=== PATIENT | male | born 1940 | race Caucasian/White ===

== ENCOUNTER → 2016-05-18 | Outpatient (CLI) | payer OTHER ==
--- NOTE | 2016-05-18 17:18 | DX ---
Lumbar Spine, 4 views History: Pain Comparison: July 12, 2013 Findings: Lumbar alignment is anatomic, with a mild retrolisthesis present at L3-L4 . 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 There are 5 lumbarized vertebral bodies. There is moderate degene rative disk base narrowing between L1 and L5 with severe disk space narrowing at L5-S1. There is a va cuum phenomenon present at L4-L5. There is degenerative facet disease on the right between L4 and S1 and on the left at L5-S1.. There are anterior and posterior osteophytes present between L1 and L5. Th ere are no compression abnormalities. There is stable dense atherosclerotic calcification of the abdo christine aorta. Impression: 1. Chronic multilevel degenerative change superimposed on a congenitally small lumbar agustin ral canal . 2. Atherosclerosis.
== END ==
LOC: GIMAGING 15:57
PROVIDERS: ATTEND Family Medicine
DX: M51.36 Other intervertebral disc degeneration, lumbar region (principal); Q07.8 Other specified congenital malformations of nervous system; I25.10 Atherosclerotic heart disease of native coronary artery without angina pectoris
CPT/HCPCS: 72100-PO

== ENCOUNTER 2016-06-06 16:37 | Inpatient (IN) | payer OTHER ==
[2016-06-06] MEDS ORDERED: ACETAMINOPHEN 325 MG TAB PO PRN (17:09)
[2016-06-06] MEDS ORDERED: PROMETHAZINE HCL 25 MG/ML INJ IVP PRN (17:09)
[2016-06-06] MEDS ORDERED: NALOXONE HCL 0.4 MG/ML INJ IVP PRN (17:09)
[2016-06-06] MEDS ORDERED: ONDANSETRON DISINTEGRATING 4 MG TAB PO PRN (17:09)
[2016-06-06] MEDS ORDERED: ONDANSETRON 4 MG/2 ML VIAL IVP PRN (17:09)
[2016-06-06] MEDS: HYDROmorphONE/DILAUDID 6 MG/30 ML PCA IV PRN (18:10)
[2016-06-06] MEDS: NS 1,000 ML IV SCH (18:11)
--- NOTE | 2016-06-06 18:20 | CPEKG ---
Heart Rate: 89 RR Interval: 674 P-R Interval: 132 QRSD Interval: 78 QT Interval: 416 QTC Interval: 507 P [place]: 69 QRS [place]: 18 T Wave [place]: 101 EKG Severity - ABNORMAL ECG - EKG Impression: SINUS RHYTHM EKG Impression: ABNORMAL T, CONSIDER ISCHEMIA, ANT-LAT LEADS EKG Impression: PROLONGED QT INTERVAL EKG Impression: PROBABLE ANTERIOR ISCHEMIA PATTERN, CONSIDER LAD OBSTRUCTION Electronically Signed By: Jeronimo Rockwell 06-Jun-2016 19:54:06
--- NOTE | 2016-06-06 18:56 | WOCRNPDOC ---
WOCRN Advanced Assessment Note - Skin Integrity Problem, Advanced Assess Coccyx Pressure Injury Dressing Type: AllevHemp [employer] Life Integumentary Issue Intervention: Visualized Under Dressing Site Measurement - Head-to-Toe Length X Width X Depth (cm): 3x3x0 Pressure Injury Stage: Stage 1 Skin Integrity Problem Comment: Education with patient about pressure injury prevention, treatment and care. Patient verbalized understanding. Pillows placed to offload to the left and pillow under legs to offload heels.
[2016-06-06 19:11] LABS: % IMMATURE GRANULYOCYTES 0.9 % (0.0-1.1); ABSOLUTE IMMATURE GRANULOCYTES 0.11 10^3/uL (0.00-0.10); ADD DIFF? NO; ADD MORPH? NO; ADD SCAN? NO; ATYPICAL LYMPHOCYTE FLAG 0 (0-99); FRAGMENT RBC FLAG 0 (0-99); HEMATOCRIT 43.7 % (40.0-51.0); HEMOGLOBIN 14.8 g/dL (13.7-17.5); LEFT SHIFT FLG 10 (0-99); LIPEMIA HEMOLYSIS FLAG 90 (0-99); MEAN CELL HEMOGLOBIN 29.4 pg (27.9-34.1); MEAN CELL HEMOGLOBIN CONCENTR. 33.9 g/dL (32.4-36.7); MEAN CELL VOLUME 86.7 fL (81.5-99.8); MEAN PLATELET VOLUME 9.9 fL (8.7-11.7); PLATELET CLUMPS FLAG 0 (0-99); PLATELET COUNT 306 10^3/uL (150-400); RED BLOOD CELL COUNT 5.04 10^6/uL (4.40-6.38); RED CELL DISTRIBUTION WIDTH 13.3 % (11.5-15.2)
[2016-06-06 19:30] LABS: APTT 25.5 SEC (23.0-38.0); INR 1.14 (0.83-1.16); PROTIME(PATIENT) 14.5 SEC (12.0-15.0)
[2016-06-06 20:06] LABS: ALANINE AMINOTRANSFERASE 37 IU/L (21-72); ALBUMIN 3.1 g/dL (3.5-5.0); ALKALINE PHOSPHATASE 138 IU/L (38-126); ANION GAP 10 mEq/L (8-16); ASPARTATE AMINOTRANSFERASE 18 IU/L (17-59); BILIRUBIN,TOTAL 0.8 mg/dL (0.1-1.4); CALCIUM 8.8 mg/dL (8.5-10.4); CARBON DIOXIDE 25 mEq/l (22-31); CHLORIDE 102 mEq/L (97-110); CREATININE 0.6 mg/dL (0.7-1.3); GLOMERULAR FILTRATION RATE > 60; GLUCOSE 139 mg/dL (70-100); POTASSIUM 4.2 mEq/L (3.5-5.2); SODIUM 137 mEq/L (134-144); TOTAL PROTEIN 6.1 g/dL (6.3-8.2)
--- NOTE | 2016-06-06 20:40 | GCON ---
[f rep st] CONSULTATION HEMATOLOGY/ONCOLOGY CONSULTATION NOTE REASON FOR CONSULTATION: Metastatic malignancy with extensive bone metastases. HISTORY OF PRESENT ILLNESS: The patient is a very pleasant 76-year-old male who was recently seen by Dr. Garcia in consultation and is being admitted for further evaluation regarding a newly diagnosed metastatic malignancy. The patient has a history of prostate cancer diagnosed about nine years ago, treated with radioactive seeds. He is not known to have any recurrence of that. He states that around he leaned over and developed some back pain which has been very persistent. It has made walking and standing difficult. It is worse when he lies down at night. The pain is in the low back and down the left leg. He is taking Vicodin about four times a day. He has lost about 30 pounds in the last three to four months. He also has severe right neck pain and has had some paresthesias in his fingertips. He recently had an MRI at [facility] after being seen at [facility]. The cervical study showed a 2.3 cm diameter metastasis on the right side of C7-T1 facet extending into the right T1 pedicle. There was partial visualization of a large , at least 2.7 cm, mass centered in the left T2 to T3 facet. There were in addition severe degenerative changes at multiple levels. MRI of his lumbar spine showed partial visualization of a large met throughout the T11 vertebral body abutting the ventral aspect of the spinal cord. There was a 1.7 cm met in the anterior inferior right T12 and then a slightly smaller metastasis noted at L1 and L5. There were no obvious fractures. The patient saw Dr. Garcia in consultation on June 03. The CT scans were ordered and done this morning at [facility]. The reports are currently not available, however, Dr. Couch relayed to Dr. Garcia that the patient had a large left upper lobe lung mass as well as possibility of intracardiac metastases. Dr. Couch felt that biopsy of the T11 lesion was probably the most direct path toward diagnostic biopsy. The patient was started on Decadron on Monday which has helped his pain somewhat. He is not interested in aggressive treatment if it is not considered curative, but is interested in pursuing a diagnosis and doing what can be done to relieve pain. PAST MEDICAL HISTORY: Prostate cancer as above. SOCIAL HISTORY: The patient does not have a smoking history. He smoked briefly when he was 20 years old, but nothing regular. He is not and does not have children. He is accompanied today by his friend, and he has several very good friends. REVIEW OF SYSTEMS: A 10-point review of systems are negative other than noted in HPI. FAMILY HISTORY: Negative. PHYSICAL EXAMINATION: GENERAL: He is fatigued appearing and somewhat uncomfortable sitting in a wheelchair. VITAL SIGNS: Blood pressure 126/86, pulse 84, respirations 16, he is afebrile. Weight 143 pounds. HEENT: Pupils are equal. Sclerae anicteric. Oropharynx clear. LUNGS: Clear with some scattered crackles in the apex. HEART: Regular rate. ABDOMEN: Soft. EXTREMITIES: No edema. NEURO: He has brisk reflexes in both upper extremities and minimal reflexes at both knees. He states he is able to walk, but has difficulty due to pain in the left leg, but denies actual weakness. LABORATORY DATA: Labs from today pending. However, labs from Monday showed an SPEP with a small abnormality in the gamma fraction, but no monoclonal protein was able to be detected by immunophenotyping. Wortham light-chain was slightly elevated at 2.5 with a slightly increased ratio of 1.8. Quantitative immune globulins unremarkable. PSA of 0.25. CEA of 0.6. LDH of 759. Alk phos 145. Calcium 9.2. Albumin 3.0. Sodium 140, creatinine 0.6. White blood cell count 11.6, hematocrit 44.3 and platelets 265. IMPRESSION: This is a 76-year-old male with newly diagnosed left upper lobe lung mass and extensive vertebral metastasis. There is no evidence of pathologic fracture on the recent cervical and lumbar MRI. The MRI's are outside films and are currently not available. Imaging is most suggestive of this being a lung cancer primary. While the patient has a remote history of prostate cancer, this seems less likely especially in the setting of a low PSA. Lymphoma would be another consideration , but again unlikely. While patient has a slightly altered Wortham lambda ratio, I think multiple myeloma would also be unlikely. At this point, the patient needs pain control. We discussed a trial of Dilaudid SENIOR DIRECTOR which he is open to. He is receiving some pain relief from the steroids which we can continue. I would recommend checking a thoracic MRI and probably cervical MRI as well, so those films can be readily available for review. He should also have a brain MRI. Dr. Couch felt that T11 lesion was most amenable to biopsy or possibly the sacral lesion. Will order a CT-guided bone biopsy for the morning as well as an echocardiogram to evaluate for the possibility of intracardiac metastases. The patient is primarily interested in pain control and may decide not to undergo any treatment, but more specific conversations will be had in the future once a definitive diagnosis is made. Will continue to follow along with you. /[id number]/MODL MTDD
[2016-06-06] MEDS ORDERED: DEXAMETHASONE 4 MG TAB PO SCH (21:00)
--- NOTE | 2016-06-06 22:17 | DX ---
Chest, PA and Lateral June 06, 2016 HISTORY: Cough and shortness of breath. History of lung CA. Comparisons: None. FINDINGS: The heart size is within normal limits. Opacification is seen superiorly in the left lung , which could be a mass and/or pneumonia. The right lung is clear. Emphysematous configuration to t he chest. Degenerative change is seen in the thoracic spine. IMPRESSION: Focal opacification in the left upper lobe in a suprahilar location, which could be a co mbination of a mass and/or pneumonia. Comparison to old films would be helpful.
--- NOTE | 2016-06-06 22:26 | GHP ---
[f rep st] HISTORY AND PHYSICAL DATE OF ADMISSION: 06/06/2016 CHIEF COMPLAINT: Difficulty walking and pain. HISTORY: A 76-year-old man who has a past medical history of prostate cancer treated with radioactiv e beads many years ago, who presents from the [facility] with concerns for a new di agnosis of metastatic disease to the spine. The patient notes that over the last several months he h as had difficulties with worsening abdominal and back pain that also affects his legs. He has progre ssive weakness involving his lower extremities, left greater than right, to the point where he is hav ing difficulty walking. He has also had unintentional 30-pound weight loss. He has been started on oral opiates, though this has not been able to control his pain. He recently underwent imaging at an outside imaging center, and these results were notable for a number of vertebral mets with possible spinal cord impingement, and a concern for a possible pulmonary mass as well. Given need for emergen t workup of these lesions, he is being brought in for expedited inpatient workup. PAST MEDICAL HISTORY: Prostate cancer. PAST SURGICAL HISTORY: Radioactive beads to the prostate. FAMILY HISTORY: Both parents are . His father of bone marrow cancer. He states that m any other family members have of complications of alcoholism. SOCIAL HISTORY: The patient has a very brief and remote smoking history. He is has never been marri ed. Has no children. He used to drink, but quit many years ago. REVIEW OF SYSTEMS: 10-point review of systems obtained and negative, except as per HPI. MEDICATIONS: 1. [place]. 2. Voltaren. 3. Dexamethasone. ALLERGIES: No known drug allergies. PHYSICAL EXAM: VITAL SIGNS: Reviewed and are within normal limits. GENERAL APPEARANCE: The patien t is well appearing, he appears well nourished. EYES: Anicteric. HENT: Oropharynx clear. CARDIOV ASCULAR: RRR, no MRG. PULMONARY: Occasional rales, but otherwise clear to auscultation. Normal wo rk of breathing. ABDOMEN: Soft, nontender, nondistended. EXTREMITIES: No clubbing, cyanosis, or e john. NEURO/PSYCH: Oriented and appropriate. He has weakness in the bilateral lower extremities. L eft greater than right. Sensation is intact. CLINICAL DATA: PSA noted to be 0.25. CEA of 0.6. EKG, reviewed and interpreted independently by my self, showing sinus rhythm. There is a bit of unstable baseline; however, T-wave abnormalities, ante rior lateral leads, concerning for ischemia. Chest x-ray, reviewed and interpreted independently by myself. Radiology read is currently pending. There is a dense left upper lobe lesion consistent with a pulmonary lesion noted on CT scan. Labs notable for white blood cell count of 12.5, hematocrit of 43.7, platelets of 306. Coags are with in normal limits. Chemistry is remarkable for glucose of 139. LFTs are remarkable only for a total o f protein 6.1 and albumin 3.1. ASSESSMENT AND PLAN: 76-year-old man with a new diagnosis of presumed metastatic cancer with unknown primary, likely pulmonary, presenting with gait instability and diffuse pain. 1. Metastatic vertebral cancer. Patient with multiple lesions noted on outside imaging, with possib le cord involvement. Followup MRI ordered to further evaluate cervical and thoracic spine, as well a s the brain. Oncology is involved. The patient will undergo biopsy likely of thoracic lesion noted on outside imaging, but again followup imaging ordered for tonight. Again, with large lung lesion th e underlying possible source especially given a normal PSA. 2. Chronic pain. The patient's pain is not controlled currently. He will be started on a Dilaudid PIT STEWARD to get a sense of what his 24-hour opiate requirement is to have pain control. 3. EKG abnormalities. Patient does describe some chest discomfort. BNP was obtained at 592. Will trend troponins overnight. We will obtain an echocardiogram as well in the morning. 4. Disposition, inpatient status. Patient will need greater than 48-hour stay for evaluation and ma nagement of above. 5. Patient is new to my care. Old records reviewed. Summary is as per HPI and past medical history . Care plan reviewed with Oncology and ER physician, including plans for likely biopsy in the ban gayle /[id number]/MODL
[2016-06-06] MEDS: DICLOFENAC SODIUM 75 MG TAB PO SCH (22:44)
[2016-06-06 23:43] LABS: COLOR YELLOW; LEUKOCYTE ESTERASE,URINE NEGATIVE (NEGATIVE); NITRITE,URINE NEGATIVE (NEGATIVE)
[2016-06-07 04:44] LABS: % IMMATURE GRANULYOCYTES 0.7 % (0.0-1.1); ABSOLUTE IMMATURE GRANULOCYTES 0.09 10^3/uL (0.00-0.10); ADD DIFF? NO; ADD MORPH? NO; ADD SCAN? NO; ATYPICAL LYMPHOCYTE FLAG 10 (0-99); FRAGMENT RBC FLAG 0 (0-99); HEMATOCRIT 40.7 % (40.0-51.0); HEMOGLOBIN 13.6 g/dL (13.7-17.5); LEFT SHIFT FLG 10 (0-99); LIPEMIA HEMOLYSIS FLAG 80 (0-99); MEAN CELL HEMOGLOBIN 30.2 pg (27.9-34.1); MEAN CELL HEMOGLOBIN CONCENTR. 33.4 g/dL (32.4-36.7); MEAN CELL VOLUME 90.4 fL (81.5-99.8); MEAN PLATELET VOLUME 10.2 fL (8.7-11.7); PLATELET CLUMPS FLAG 0 (0-99); PLATELET COUNT 275 10^3/uL (150-400); RED CELL DISTRIBUTION WIDTH 13.4 % (11.5-15.2)
[2016-06-07 04:48] LABS: ANION GAP 7 mEq/L (8-16); CALCIUM 8.5 mg/dL (8.5-10.4); CARBON DIOXIDE 27 mEq/l (22-31); CHLORIDE 105 mEq/L (97-110); CREATININE 0.6 mg/dL (0.7-1.3); GLOMERULAR FILTRATION RATE > 60; GLUCOSE 139 mg/dL (70-100); POTASSIUM 4.6 mEq/L (3.5-5.2); SODIUM 139 mEq/L (134-144)
[2016-06-07] MEDS: DEXAMETHASONE 4 MG TAB PO SCH ×2 (08:57→20:44)
[2016-06-07] MEDS: DICLOFENAC SODIUM 75 MG TAB PO SCH ×2 (08:57→20:45)
[2016-06-07] MEDS ORDERED: GADOBUTROL 10 ML VIAL IVP ONE (09:33)
[2016-06-07] MEDS ORDERED: HYDROmorphONE/DILAUDID 1 MG/ML SYR IVP PRN (10:03)
--- NOTE | 2016-06-07 12:02 | MR ---
MRI of the Cervical Spine (Without and With Contrast), 10:26 Contrast: 6 mL Gadavist gadolinium contrast, without complication. History: Lumbar spinal metastases identified on outside lumbar MRI, patient cannot walk, evaluate for cervical metastatic disease COMPARISON: None Technique: Precontrast: sagittal TI, FSE T2 and STIR images. Axial T1 and FSE T2 images. Post Contras t: T1 sagittal and axial images. Findings: Identified is a lower portion of the study is right sided posterior T1 vertebral body metas tatic disease extending through the right pedicle into the superior and inferior articulating facets. This is associated with an enhancing soft tissue mass posterior to the articular process of C7 and t he C6-C7 facet joint. This mass circumferentially encases the right lateral posterior elements. This soft tissue mass causes a right lateral 6mm extradural mass, that mildly impinges on the thecal sac a nd encroaches on the right T1-T2 and C7-T1 neural foramina. The cord is not obviously displaced or fl attened. Also present on the lower portion of the study is a large metastasis involving the left side of the T 3 vertebral body that expands and destroys the left posterior elements and significantly encroaches o n the left T3-T4 and 12 lesser extent T2-T3 foramen. This level is not included on axial imaging. On sagittal postcontrast images the left lateral epidural mass appears to at least touch the cord at thi s level. The craniocervical junction and cervical alignment are anatomic. There is scattered degenera tive disk disease between C3 and C7, none of which causes severe central neural canal stenosis or sig nificant cervical cord impingement. The visualized posterior fossa does not show evidence for metasta tic disease. There is midline cerebellar atrophy. The cervical cord is normal in size and signal inte nsity. There is no evidence for a cord metastasis, cord atrophy, syrinx formation or extrinsic cord c ompression. There is no evidence for cervical vertebral or epidural metastatic disease. There is no pathologic cervical adenopathy identified. Impression: 1. Metastatic disease in the upper thoracic spine described above, is associated with epi dural mass. 2. No cervical spinal or cord metastasis identified. 3. Moderate cervical spondylosis without evidence for significant cord impingement. Results called to Rhona, the patient's 1N nurse at noon.
--- NOTE | 2016-06-07 12:32 | MR ---
MRI of the Brain(Without and With Contrast) Contrast: 6 mL intravenous Gadavist without complication. History: Metastatic disease from unknown primary in thoracic and lumbar region. Remote history of pr ostate cancer. Technique: Sagittal and axial T1-weighted images. Axial fast T2 2nd echo, GRE, diffusion and FLAIR im ages. Postgadolinium axial and coronal images. Findings: There is no enhancing parenchymal, calvarial or extra-axial (meningeal) metastatic disease. There is moderate age-appropriate cerebral atrophy. There are bilateral isovolumic supratentorial T2 -weighted foci of hyperintensity, none of which enhance or are associated with hemorrhage or reduced effusion, consistent with typical microvascular ischemic change of in nature often seen in elderly pa tients. On diffusion imaging however, there is a single right mid parietal, curvilinear diffusion res triction within the cortex and adjacent white matter of a single gyrus (axial image 23, series 4). T here are also 2 small cortical foci of restricted diffusion in the left parietal lobe on images 21 an d 23. None of these are associated with gadolinium enhancement. There is no midline shift or hydrocephalus. There is no intracranial hemorrhage. There are scattered bilateral Impression: 1. No definitive evidence for intracranial metastatic disease. 2. Small areas of biparietal cortical diffusion restriction, possibly representing tiny acute infarct s (related to emboli or vasculitis) or less likely, potential evidence of minimal metastasis, not yet associated with blood brain barrier leakage. This can be followed on subsequent MRI, as clinically directed.
[2016-06-07] MEDS ORDERED: NA BICARBONATE 50 MEQ/50 ML VIAL ONE ×2 (13:42→15:16)
[2016-06-07] MEDS ORDERED: LIDOCAINE 1% 30 ML SDV ONE ×2 (13:42→15:16)
--- NOTE | 2016-06-07 14:38 | US ---
Limited ultrasound Spinal canal lower thoracic spine 0903 hours. HISTORY: Right posterior paraspinal mass on prior CT imaging. FINDINGS: Ultrasound right lower thoracic spine in the T11 level confirms hypoechoic solid mass with internal color flow enhancement that measures 5.6 x 2.2 x 3.7 cm. The patient was originally schedule d for ultrasound-guided needle core biopsy, however, this was canceled. IMPRESSION: 1. Right posterior paraspinal mass confirmed at around the T11 level. If indicated, this can be biops ied with ultrasound guidance at a later date.
--- NOTE | 2016-06-07 15:03 | ECHO ---
[id number] + + [address] : : [place] [address] : : [phone] + + Adult Echocardiographic Report + -----+ :Name: CAMILO SPAIN SStudy Date: 06/07/2016 12:20 PM : : Hospital Admission Number: [id number] Location : 156: :: 1940 Gender: Male Height: 70 in : :Age: 76 yrs Race: WH Weight: 146 lb : :Reason For Study: CT scan shows LG lung mass w/ possible : :intracardiac involvement BSA: 1.8 meters2 : :History: new diagnosis of metastic malignancy : + -----+ MMode/2D Measurements & Calculations IVSd: 1.0 cm RVDd: 2.3 cm FS: 36.0 % LVPWd: 0.80 cm LVIDd: 4.2 cm EDV(Teich): 79.5 ml LVIDs: 2.7 cm ESV(Teich): 27.0 ml EF(Teich): 66.0 % Normal Measurement Values: + + :LVIDd (3.5-5.7cm) IVSd (0.6-1.1cm) LVPWd (0.6-1.1cm) Aortic Root (2.0-3.7cm)Left Atrium (1.5-4.0cm): :LV Vol(d) (76-115ml) LV Vol(s) (29-48ml) Ejec Fraction (50-65%)PV [place] (0.6- 1.2m/s) TV [place] (0.4-1.0m/s) : :MV E [place] (0.8-1.0m/s)MV A [place] (0.3-1.0m/s)LVOT [place] (0.7-1.2m/s) Asc Ao Gilmar ( 0.9-1.8m/s) : + + Doppler Measurements & Calculations MV E max gilmar: Ao V2 max: LV V1 max: PA V2 max: 69.1 cm/sec 115.0 cm/sec 88.4 cm/sec 72.8 cm/sec MV A max gilmar: Ao max P.3 mmHgLV V1 max PG: PA max P.2 cm/sec 3.1 mmHg 2.1 mmHg MV E/A: 1.1 TR max gilmar: 291.0 cm/sec TR max P.9 mmHg RAP systole: 10.0 mmHg RVSP(TR): 43.9 mmHg Left Ventricle The left ventricle is normal in size and function. Large cardiac mass noted in the apex of the left and probably right ventricule. The mass appears to be most likely a tumor and not a clot. Ejection Fraction = 60%. The left ventricular wall motion is normal. Right Ventricle The right ventricle is normal in size and function. Possible RV apical mass. Atria The left atrial size is normal. Right atrial size is normal. A dilated inferior vena cava suggests increased right atrial pressure. Mitral Valve The mitral valve is normal in structure and function. There is no mitral valve stenosis. There is trace to mild mitral regurgitation. Tricuspid Valve The tricuspid valve is normal in structure and function. There is no tricuspid stenosis. There is moderate tricuspid regurgitation. Right ventricular systolic pressure is 44mmHg. There is Doppler evidence for mild pulmonary hypertension. Aortic Valve The aortic valve is trileaflet. There is mild aortic valve calcification. There is no aortic stenosis. Mild aortic regurgitation. Pulmonic Valve The pulmonic valve is not well visualized. Great Vessels The aortic root is not well visualized. Pericardium/Pleural There is no pericardial effusion. Conclusion A two-dimensional transthoracic echocardiogram with M-mode and Doppler was performed. The left ventricle is normal in size and function. Large cardiac mass noted in the apex of the left and probably right ventricule. The mass appears to be most likely a tumor and not a clot. Ejection Fraction = 60%. There is trace to mild mitral regurgitation. There is moderate tricuspid regurgitation. Right ventricular systolic pressure is 44mmHg. Mild aortic regurgitation. The aortic root is not well visualized. The left ventricular wall motion is normal. There is Doppler evidence for mild pulmonary hypertension. Results discussed with Dr. Warner Final Reading Physician: Dr Aye Thompson electronically signed on 06/07/2016 03:01 PM Ordering Physician: Radha Warner Performed By: Nohemi Ocampo
[2016-06-07] MEDS: LORazepam 0.5 MG TAB PO PRN ×2 (15:34→17:34)
[2016-06-07] MEDS ORDERED: BUPIVACAINE 0.25% 30 ML SDV ONE (15:51)
--- NOTE | 2016-06-07 16:45 | US ---
Ultrasound-guided biopsy right posterior paraspinal T11 mass HISTORY: Soft tissue mass right posterior paraspinal soft tissues. Unknown primary. PQRS Cross-Cutting Measure: Tobacco use: No. Witnessed Consent: Witnessed informed consent was obtained after the risks, benefits, and alternativ es of ultrasound-guided core biopsy right posterior paraspinal mass were explained to the patient and all questions were answered. The mass right posterior paraspinal location was localized at around the T11 level. The skin was prep ped and draped in sterile fashion. Following local anesthesia with 1% lidocaine a 17-gauge coaxial ne edle was advanced with ultrasound guidance to the superficial margin of the mass. 6 core biopsy sampl es were submitted in formalin to pathology. An additional 2 samples were submitted in Brendan's solution as well. No immediate complications were visualized. No bleeding occurred. IMPRESSION: Successful ultrasound-guided 18-gauge needle core biopsy of right posterior paraspinal ma ss at around the T11 level.
--- NOTE | 2016-06-07 18:10 | MR ---
MRI of the Thoracic Spine (Without and with Contrast) 1104 hours Reason for examination: Lumbar metastatic disease and pulmonary mass. Evaluate for thoracic spine met astatic disease. Unable to walk. Technique: Sagittal T1, FSE T2 2nd echo with fat suppression and STIR imaging. Axial T1 and FSE T2 2n d echo imaging with fat suppression. Postcontrast T1 sagittal with fat saturation and axial imaging w as obtained after the administration of 6.0 mL Gadovist IV contrast. Findings: There is abnormal enhancing mass left pedicle and transverse process at T3 that extends int o the left anterior epidural space with displacement of the cervical spinal cord toward the right. Ma ss extends into the left paraspinal soft tissues as well as extension into the left upper lobe mass. There is also diffuse bone marrow replacement and enhancement soft tissues with associated enhancemen t of the T11 vertebral body segment with extension of tumor into the anterior epidural space causing moderate compression upon the spinal sac and moderate spinal stenosis. There is also a soft tissue co mponent extending in the right posterior paravertebral soft tissues. This posterior extension measur es 5.3 x 2.5 x 3 cm in longitudinal, AP, and transverse dimensions. Metastatic deposit is also seen associated with the right anterior aspect of T12 vertebral body. No a dditional osseous metastatic lesions are appreciated involving the thoracic spine. Mild posterior central disk bulge is suspected at T6-T7. No significant degenerative disk disease is appreciated. Impression: 1. Osseous mass involving the left side of T3 vertebral body segment extending into the left pedicle with involvement of the left and anterior epidural space displacing the spinal cord toward the right as well as extension left paraspinal soft tissues and left upper lobe pulmonary mass. 2. Metastatic lesion at the T11 vertebral body segment with extension into the anterior epidural spac e as well as through the right pedicle and transverse process into the right posterior paraspinal sof t tissues. This area was subsequently biopsied with ultrasound guidance. 3. Osseous metastatic lesion right anterior aspect of T12.
--- NOTE | 2016-06-07 18:50 | SOAPPROG ---
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 3)Left thigh pain-impairing ambulation 4) Intracardiac mass at LV/RV apex. Appears intrinsic to the myocardium (not intraventricular), likely represents a metastasis. Plan: continue dex and dilaudid ROUTE SALES SPECIALIST Follow up biopsy results. Will need further eval of left leg. Probably start with xray tomorrow Consider cardiac mri to further characterize cardiac mass. Subjective: much more comfortable today. Objective: Vital Signs Temp Pulse Resp BP Pulse Ox 36.6 C 84 20 102/69 91 L 06/07/16 18:16 06/07/16 18:16 06/07/16 18:16 06/07/16 18:16 06/07/16 18:16 Laboratory Results 06/07/16 04:01 06/07/16 04:01 06/06/16 06/07/16 06/08/16 05:59 05:59 05:59 Intake Total 2217.2 1075 Output Total 550 Balance 1667.2 1075 PT 14.5 SEC (12.0-15.0) 06/06/16 19:00 INR 1.14 (0.83-1.16) 06/06/16 19:00 Physical Exam - Physical Exam General Appearance: alert, no apparent distress Neck: supple Respiratory: lungs clear Abdomen: non-tender, soft Extremities: No pedal edema Neuro/Psych: other (some tingling at the right finger tips) ICD10 Worksheet Patient Problems: Problems Problem Status Diagnosed 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
--- NOTE | 2016-06-07 18:55 | HOSPPROG ---
Hospitalist Progress Note Assessment/Plan: DIAGNOSIS: # ONGOING SEVERE FOCAL SPINE PAIN WELL RIGHT CERVICAL RADICULOPATHY TO THE HAND WITH WEAKNESS # MULTIPLE METASTATIC LESIONS OF THE SPINE # LARGE INTRACARDIAC MASS, POSSIBLE FOCAL PRIMARY TUMOR THEY ARE # MEDIASTINAL PLEURA BASED LUNG MASS IN THE LEFT CHEST WHICH WOULD BE ANOTHER POSSIBLE PRIMARY PLANS: -I had a long talk with the patient at bedside regarding potential prognosis, the potential for worsening pain, the potential for worsening disabilities. Initially in our discussion he was not at all interested in the possibility of radiation therapy, surgery, chemotherapy, or other therapies stating that the end result here as this is terminal and . I did review with him however that we may be able to use palliative therapies such as radiation or surgery to prevent worsening disability and to improve pain and pain management. At this point he would like to have a tissue diagnosis and I think is very reasonable to get a biopsy which should be very easy with a CT scan or ultrasound guided approach. -radiologically guided needle biopsy of soft tissue lesion behind thoracic spine -for now continue current pain management strategy and titrate as needed -I reviewed reviewed the patient's condition and care plans in detail with Dr. Radha Warner of Oncology and Dr. Catarino Burden of radiology Total greater than 50 minutes spent at the bedside with patient and in care coordination today SUBJECTIVE: Patient still has quite a bit of pain in the spine areas. He still has weakness and tingling in the right hand and arm but no pain there. No other new neurologic symptoms bladder and bowel working okay OBJECTIVE Vitals reviewed: Stable without fever Exam: alert oriented skin warm dry color ok resps not labored lungs clear BSs heart regular abd soft nondistended nontender, bowel sounds present limbs warm, no edema iv site ok MRI of cervical and thoracic spine done today, my personal review of the images : There are several levels of metastatic disease in the thoracic and lumbar spine, with some obvious nerve impingement at T3, and with significant soft tissue mass posterior to T11 it is fairly superficial as well. 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
[2016-06-08] MEDS ORDERED: NALOXONE HCL 0.4 MG/ML INJ IVP PRN (00:54)
[2016-06-08] MEDS: oxyCODONE IR 5 MG TAB PO PRN (01:45)
[2016-06-08] MEDS: HYDROmorphONE/DILAUDID 6 MG/30 ML PCA IV PRN ×3 (02:35→20:20)
[2016-06-08] MEDS: DEXAMETHASONE 4 MG TAB PO SCH ×2 (07:56→20:20)
[2016-06-08] MEDS: DICLOFENAC SODIUM 75 MG TAB PO SCH ×2 (07:56→20:20)
[2016-06-08] MEDS: NS 1,000 ML IV SCH ×2 (12:17→20:20)
--- NOTE | 2016-06-08 16:11 | DX ---
Left Femur, Two Views History: Thigh pain and tenderness. Osseous metastases of unknown primary. Comparison: None available. Findings: There is a comminuted intertrochanteric fracture of the left femur, with moderate varus an gulation. Osseous assessment is slightly limited by bony and soft tissue overlap, with no definite u nderlying lesion identified. Alignment of the femoral head is normal. Alignment of the knee is norm al. Brachytherapy seeds are noted in the prostate. Diverticulosis is noted. Impression: Comminuted intertrochanteric fracture of the left femur, with varus angulation. Findings discussed with Dr. Jane Bee on June 08, 2016 at 1603 hours.
--- NOTE | 2016-06-08 17:55 | HOSPPROG ---
Hospitalist Progress Note Assessment/Plan: DIAGNOSIS: # ONGOING SEVERE FOCAL SPINE PAIN WELL RIGHT CERVICAL RADICULOPATHY TO THE HAND WITH WEAKNESS # MULTIPLE METASTATIC LESIONS OF THE SPINE # LARGE INTRACARDIAC MASS, POSSIBLE FOCAL PRIMARY TUMOR THEY ARE # MEDIASTINAL PLEURA BASED LUNG MASS IN THE LEFT CHEST WHICH WOULD BE ANOTHER POSSIBLE PRIMARY # LEFT FEMUR FRACTURE, SUSPECT PATHOLOGIC FRACTURE PLANS: -non weight-bearing on left leg -I have asked Dr. Alfreda Spain of Orthopedics to see the patient for his fracture -await pathology reports from his back biopsy -again I suspect he will be greatly benefitted by either radiation therapy to the spine and or surgical stabilization of spine and I reviewed this with him again today -continue general supportive and symptomatic care Total greater than 45 minutes spent at the bedside with patient and in care coordination today SUBJECTIVE: Patient still has quite a bit of pain in the spine areas. Also today he tells me that early this morning he moved his left leg while lying in bed and had sudden onset of pain at the left hip and this pain still gives him great trouble any time he moves his leg. There is no neuropathic standing component to this. He still has weakness and tingling in the right hand and arm but no pain there, unchanged from yesterday No other new neurologic symptoms bladder and bowel working okay OBJECTIVE Vitals reviewed: Stable without fever Exam: alert oriented skin warm dry color ok resps not labored lungs clear BSs heart regular abd soft nondistended nontender, bowel sounds present limbs warm, no edema iv site ok I ordered x-rays of his left femur which are showing an intratrochanteric fracture with some displacement in the way of angulation. I cannot see any malignant lesions there and this x-ray of fair imaging quality but I suspect this is a pathologic fracture and will need repair Objective: Vital Signs Temp Pulse Resp BP Pulse Ox 36.6 C 65 18 143/70 H 97 06/08/16 16:00 06/08/16 16:00 06/08/16 16:00 06/08/16 16:00 06/08/16 16:00 Laboratory Results 06/07/16 04:01 06/07/16 04:01 06/07/16 06/08/16 06/09/16 06:59 06:59 06:59 Intake Total 2217.2 3004.2 1988 Output Total 550 1000 300 Balance 1667.2 2004.2 1688 PT 14.5 SEC (12.0-15.0) 06/06/16 19:00 INR 1.14 (0.83-1.16) 06/06/16 19:00 ICD10 Worksheet Patient Problems: Problems Problem Status Diagnosed 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
--- NOTE | 2016-06-08 19:07 | SOAPPROG ---
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 - path pending * Left hip fracture, likely pathologic: Ortho consulted. Reviewed palliation and QOL with ORIF. * Intracardiac mass at LV/RV apex. Appears intrinsic to the myocardium (not intraventricular), likely represents a metastasis. * Supportive care: - discussed DVT prophylaxis (LMWH) with Dr. Mejia, timing of initiation depending on surgical plan - he requests to be DNR - he is working on MDPOA 06/08/16 19:08 Subjective: S: Pain control much better with AFFIRMATIVE ACTION OFFICER. Has had left hip/thigh pain for over a month with worsening more recently. O: VS reviewed. Gen: A&O, Uncomfortable with any movement of left leg. Lungs: breathing comfortably. CV: SCDs, no edema. Labs reviewed. Path pending. Imaging reviewed. Left hip XR shows intertrochanteric fracture. No obvious underlying lesion, but limited quality. 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
--- NOTE | 2016-06-08 22:39 | SOAPPROG ---
NAUN Progress Note Assessment/Plan: Assessment: Plan: 06/08/16 22:34 Saw patient tonight. There is an evident of sub trochanteric fracture on the left w/o trauma. Combined with known cancer/bone metas. this would be considered a pathological fracture. Radiographs fit this. He lies in bed, comfortable, pain well managed, knee/hip slightly flexed with good ankle/foot mobility and NV intact. I decided not to apply traction due to him reporting feeling comfortable w/o deficit and not being in Ortho unit - nurses on thsi floor did not feel comfortable with it. He recently ate so will not go to surgery tonight. I will try and arrange a surgical procedure for him in the next days and will contact the floor as for NPO. 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
[2016-06-09] MEDS: NS 1,000 ML IV SCH ×2 (01:00→20:06)
[2016-06-09] MEDS: HYDROmorphONE/DILAUDID 6 MG/30 ML PCA IV PRN ×2 (06:33→21:45)
[2016-06-09] MEDS: DICLOFENAC SODIUM 75 MG TAB PO SCH ×2 (09:42→20:50)
[2016-06-09] MEDS: DEXAMETHASONE 4 MG TAB PO SCH ×2 (09:42→20:50)
--- NOTE | 2016-06-09 15:18 | HOSPPROG ---
Hospitalist Progress Note Assessment/Plan: DIAGNOSIS: # LEFT FEMUR FRACTURE, SUSPECT PATHOLOGIC FRACTURE (occured here in hospital as he was rolling over in bed, no trauma or fall) # ONGOING SEVERE FOCAL SPINE PAIN WELL RIGHT CERVICAL RADICULOPATHY TO THE HAND WITH WEAKNESS # MULTIPLE METASTATIC LESIONS OF THE SPINE # LARGE INTRACARDIAC MASS, POSSIBLE FOCAL PRIMARY TUMOR THEY ARE # MEDIASTINAL PLEURA BASED LUNG MASS IN THE LEFT CHEST WHICH WOULD BE ANOTHER POSSIBLE PRIMARY PLANS: -non weight-bearing on left leg -Surgery likely tonight for his fracture -await pathology reports from his back biopsy -again I suspect he will be greatly benefitted by either radiation therapy to the spine and or surgical stabilization of spine -continue general supportive and symptomatic care SUBJECTIVE: Pain unchanged in the spine areas. L leg pain ok if he does not move, bad with any movement He still has weakness and tingling in the right hand and arm but no pain there, remains unchanged No other new neurologic symptoms bladder and bowel working okay OBJECTIVE Vitals reviewed: Stable without fever Exam: alert oriented skin warm dry color ok resps not labored lungs clear BSs heart regular abd soft nondistended nontender, bowel sounds present limbs warm, no edema iv site ok Objective: Vital Signs Temp Pulse Resp BP Pulse Ox 36.8 C 76 18 148/83 H 95 06/09/16 14:00 06/09/16 14:00 06/09/16 14:00 06/09/16 14:00 06/09/16 14:00 Laboratory Results 06/07/16 04:01 06/07/16 04:01 06/08/16 06/09/16 06/10/16 06:59 06:59 06:59 Intake Total 3004.2 3655 Output Total 1000 1300 300 Balance 2004.2 2355 -300 PT 14.5 SEC (12.0-15.0) 06/06/16 19:00 INR 1.14 (0.83-1.16) 06/06/16 19:00 ICD10 Worksheet Patient Problems: Problems Problem Status Diagnosed 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
--- NOTE | 2016-06-09 17:25 | SOAPPROG ---
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 - path pending * Left hip fracture, likely pathologic: ORIF tomorrow. 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 * Intracardiac mass at LV/RV apex. Appears intrinsic to the myocardium (not intraventricular), likely represents a metastasis. * Supportive care: - he requests to be DNR - he is working on MDPOA Subjective: comfortable, surgery tomorrow Objective: Vital Signs Temp Pulse Resp BP Pulse Ox 36.8 C 99 18 154/83 H 95 06/09/16 15:29 06/09/16 15:29 06/09/16 15:29 06/09/16 15:29 06/09/16 15:29 Laboratory Results 06/07/16 04:01 06/07/16 04:01 06/08/16 06/09/16 06/10/16 05:59 05:59 05:59 Intake Total 3004.2 2138 1517 Output Total 1000 1300 300 Balance 2004.2 838 1217 PT 14.5 SEC (12.0-15.0) 06/06/16 19:00 INR 1.14 (0.83-1.16) 06/06/16 19:00 Physical Exam - Physical Exam General Appearance: alert, no apparent distress Respiratory: lungs clear Cardiac/Chest: regular rate, rhythm Abdomen: non-tender, soft Extremities: No pedal edema ICD10 Worksheet Patient Problems: Problems Problem Status Diagnosed 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
[2016-06-10] MEDS: NS 1,000 ML IV SCH ×2 (04:26→18:43)
[2016-06-10 05:27] LABS: % IMMATURE GRANULYOCYTES 1.4 % (0.0-1.1); ABSOLUTE IMMATURE GRANULOCYTES 0.22 10^3/uL (0.00-0.10); ADD DIFF? NO; ADD MORPH? NO; ADD SCAN? NO; ATYPICAL LYMPHOCYTE FLAG 0 (0-99); FRAGMENT RBC FLAG 0 (0-99); HEMATOCRIT 41.3 % (40.0-51.0); HEMOGLOBIN 13.9 g/dL (13.7-17.5); LEFT SHIFT FLG 30 (0-99); LIPEMIA HEMOLYSIS FLAG 80 (0-99); MEAN CELL HEMOGLOBIN 29.6 pg (27.9-34.1); MEAN CELL HEMOGLOBIN CONCENTR. 33.7 g/dL (32.4-36.7); MEAN CELL VOLUME 88.1 fL (81.5-99.8); MEAN PLATELET VOLUME 10.2 fL (8.7-11.7); PLATELET CLUMPS FLAG 0 (0-99); PLATELET COUNT 222 10^3/uL (150-400); RED BLOOD CELL COUNT 4.69 10^6/uL (4.40-6.38); RED CELL DISTRIBUTION WIDTH 13.2 % (11.5-15.2)
[2016-06-10 05:35] LABS: ANION GAP 4 mEq/L (8-16); CALCIUM 8.2 mg/dL (8.5-10.4); CARBON DIOXIDE 26 mEq/l (22-31); CHLORIDE 105 mEq/L (97-110); CREATININE 0.5 mg/dL (0.7-1.3); GLOMERULAR FILTRATION RATE > 60; GLUCOSE 119 mg/dL (70-100); POTASSIUM 4.1 mEq/L (3.5-5.2); SODIUM 135 mEq/L (134-144)
[2016-06-10] MEDS: HYDROmorphONE/DILAUDID 6 MG/30 ML PCA IV PRN ×2 (06:54→18:43)
[2016-06-10] MEDS: DICLOFENAC SODIUM 75 MG TAB PO SCH ×2 (09:45→20:56)
[2016-06-10] MEDS: DEXAMETHASONE 4 MG TAB PO SCH ×2 (09:45→20:56)
[2016-06-10] MEDS ORDERED: ceFAZolin 2 GM/DEXTROSE 100 ML IV ONE (13:33)
[2016-06-10] MEDS ORDERED: CEFAZOLIN 2 GM/DEXTROSE/100 ML BAG IV ONE (13:48)
--- NOTE | 2016-06-10 13:57 | SOAPPROG ---
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 - path pending * Left hip fracture, likely pathologic: ORIF today. * Intracardiac mass at LV/RV apex. Appears intrinsic to the myocardium (not intraventricular), likely represents a metastasis. * Supportive care: - will need postop DVT prophylaxis - he requests to be DNR - he is working on MDPOA 06/10/16 13:56 Subjective: S: Good pain control. Waiting for surgery. No new concerns, questions. O: VSS. Gen: A&O. Lungs: breathing comfortably. Pathology pending. 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
[2016-06-10] MEDS ORDERED: PROPOFOL 200 MG/20 ML VIAL ONE ×2 (14:08)
[2016-06-10] MEDS ORDERED: fentaNYL 100 MCG/2 ML INJ ONE ×2 (14:08→17:19)
[2016-06-10] MEDS ORDERED: MIDAZOLAM 2 MG/2 ML VIAL ONE (14:11)
[2016-06-10] MEDS ORDERED: ROCURONIUM 50 MG/5 ML VIAL ONE (14:15)
[2016-06-10] MEDS ORDERED: LIDOCAINE 2% 5 ML SDV ONE (14:15)
[2016-06-10] MEDS ORDERED: BUPIVACAINE/EPI 0.25% 30 ML SDV ONE (14:24)
[2016-06-10] MEDS ORDERED: DEXAMETHASONE 4 MG/ML VIAL ONE ×2 (15:30)
--- NOTE | 2016-06-10 17:07 | SUROPNOTE ---
[facility] Operative Report - Surgery Left Femur Cephalomedullary Nail OPERATIVE REPORT DATE OF PROCEDURE: 06/10/2016 SURGEON: Marlo Jimenes MD AUTOMOTIVE GLASS SPECIALIST: Clement Paige MD (Fellow) PREOPERATIVE DIAGNOSIS: Left hip subtrochanteric fracture POSTOPERATIVE DIAGNOSIS: Left hip subtrochanteric fracture OPERATION: Left femur surgical fixation with cephalomedullary nail ANESTHESIA: General COMPLICATION: None SPECIMEN: None DISPOSITION: To PACU in stable condition COMPONENTS: 1. M[employer]za [employer] Intertan femoral nail 10mm x 38cm 125 Left 2. Subtrochanteric Lag Screw 100mm 3. Compression screw 95mm 4. Distal Locking Screw 5mm x 32.5mm CLINICAL NOTE: The patient is a 76 year [id number] male with a known history of prostate cancer. He was admitted to [facility] on 06/06/16 for evaluation of newly diagnosed metastatic disease. He has metastasis to multiple areas of the body including the spine. On 06/08/16 he was lying in bed and moved his leg and had a sudden onset of pain at the left hip. Imaging revealed a subtrochanteric left hip fracture. He was determined to be stable for surgery. We explained the risks , benefits, alternative procedures, expected outcomes, as well as length of convalescence. Having understood that, informed consent has been signed. The patient's operative extremity was marked in the preoperative holding area. The patient received appropriate antibiotic prophylaxis. The patient taken to the operating room on June 10, 2016 in stable condition. DESCRIPTION OF OPERATION: Once in the operating room a brief time-out was taken by nursing team, Anesthesia, and surgical staff, confirming the patient's operative site was the left lower extremity. At this point in time the patient was placed supine on the operative table. All bony prominences were well padded. IV sedation was given to the patient. Once asleep, a laryngeal mask airway was inserted and general inhalation anesthetics were administered for the duration of the case. At this point in time, the patients was leg was manipulated to obtain a reduction of the fracture, this was confirmed with fluoroscopy. The patient's left lower extremity was then prepped and draped in usual sterile fashion. An approximately 3 cm incision was made slightly superior and posterior to the greater trochanter. Incision was taken through the IT band. Blunt dissection was then performed to locate the tip of the greater trochanter. A K-wire was placed into the tip of the greater trochanter and proper position was confirmed with AP and lateral fluoroscopy views. The starting reamer was then used over the k-wire to the level of the lesser trochanter. A guide wire was then placed down the femoral canal down to the metaphysis. The femur was then reamed up to a size 11.5. A Mendoza [employer]hew Intertan femoral nail 10mm x 38cm 125 Left was then inserted down the femoral canal, fluoroscopy was used to confirm that reduction was maintained and that satisfactory position was obtained proximally and distally. Attention was then turned to locking the nail. A 2cm incision was made lateral to the greater trochanter and a 100mm subtrochanteric lag screw was placed into the femoral neck and head. A 95mm compression screw was then placed through the same incision. Distal fixation was then obtained through a 1cm incision with a 5mm x 32.5mm locking screw. Incisions were then thoroughly irrigated. The IT band in the proximal incision was closed with 0 vicryl. All incisions were then closed with 2-0 vicryl for the subcutaneous layer followed by 3-0 monocryl. Incisions were then sealed with dermabond and sterile dressing was applied. The patient was then taken to the PACU in stable condition. POSTOPERATIVE PLAN: The patient will be weight bearing as tolerated. Rehab should focus range of motion and strengthening. OPERATIVE TIME: Start 15:16, Finish 16:50
[2016-06-10] MEDS ORDERED: ONDANSETRON 4 MG/2 ML VIAL ONE (17:19)
--- NOTE | 2016-06-10 18:04 | DX ---
Left Femur, Two Views, at 1736 hours History: Left femur fracture status post surgery, ORIF. Findings: Left proximal femur subtrochanteric oblique slightly comminuted fracture noted, with intra operative placement of an intramedullary bianca, distal horizontal screw, and at least two oblique trans femoral neck screws. There is satisfactory alignment. Impression: Proximal left femur fracture, with intramedullary hardware and screws, demonstrating sat isfactory alignment.
--- NOTE | 2016-06-10 18:34 | HOSPPROG ---
Hospitalist Progress Note Assessment/Plan: DIAGNOSIS: # LEFT FEMUR FRACTURE, PATHOLOGIC FRACTURE NOW W JANICE SCREW FIXATION # ONGOING SEVERE FOCAL SPINE PAIN WELL RIGHT CERVICAL RADICULOPATHY TO THE HAND WITH WEAKNESS # MULTIPLE METASTATIC LESIONS OF THE SPINE # LARGE INTRACARDIAC MASS, POSSIBLE FOCAL PRIMARY TUMOR THEY ARE # MEDIASTINAL PLEURA BASED LUNG MASS IN THE LEFT CHEST WHICH WOULD BE ANOTHER POSSIBLE PRIMARY At this point the patient will need a lot of ongoing acute care for his leg and spine. In terms of his tumor I will need to review with the Oncology Service. Is not determined yet whether this is squamous or add no CA, or the primary. I am not knowledgeable of whether an intracardiac primary would be consistent with this pathology. His left chest lesion could be the primary. Much of what we recommend may depend on trying to make these determinations. PLANS: -post op care and therapies for leg -await pathology reports from his back biopsy -again I suspect he will be greatly benefitted by either radiation therapy to the spine and or surgical stabilization of spine -continue general supportive and symptomatic care - Review pathology report and possibility of primary location with Oncology SUBJECTIVE: seen preop Pain unchanged in the spine areas. 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
--- NOTE | 2016-06-10 19:05 | DX ---
Fluoroscopy, With Four Left Femur Images, at 1558 hours History: Left proximal femur subtrochanteric fracture. Fluoroscopy time: 65.6 seconds utilized intraoperatively by Dr. Jimenes. Dose: 14.33 mGy. Technique: Four left femur intraoperative images have just been presented for interpretation. Findings: Left femur intramedullary bianca, with two oblique transfemoral neck screws and a distal anthony sverse femur screw, fixating a comminuted subtrochanteric proximal left femur fracture. Impression: Left femur fracture status post internal fixation with intramedullary bianca and screws.
[2016-06-11] MEDS: DICLOFENAC SODIUM 75 MG TAB PO SCH ×2 (08:30→20:14)
[2016-06-11] MEDS: DEXAMETHASONE 4 MG TAB PO SCH ×3 (08:30→18:32)
[2016-06-11] MEDS: NS 1,000 ML IV SCH ×2 (11:05→19:02)
[2016-06-11] MEDS: ENOXAPARIN 40 MG/0.4 ML SYR SC SCH (13:58)
[2016-06-11] MEDS: FAMOTIDINE 20 MG TAB PO SCH ×2 (13:58→20:14)
--- NOTE | 2016-06-11 13:58 | SOAPPROG ---
SOAP Progress Note Assessment/Plan: Assessment/Plan: 76 yo man w left upper lobe lung mass extending into epidural space w cord compression at T3, also w T11/12 met and epidural extension 1. 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 Hip fracture - s/p ORIF 06/10; doing well from this standpoint 3. Intracardiac mass - LV/RV apex. appears intrinsic to myocardium and likely represents a met 4. 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 Pain in mid back a 6 Objective: Vital Signs Temp Pulse Resp BP Pulse Ox 36.9 C 96 18 141/88 H 94 06/11/16 10:00 06/11/16 10:00 06/11/16 10:00 06/11/16 10:00 06/11/16 08:00 Laboratory Results 06/10/16 05:09 06/10/16 05:09 06/10/16 06/11/16 06/12/16 05:59 05:59 05:59 Intake Total 1517 2487 734 Output Total 1050 430 250 Balance 467 2057 484 PT 14.5 SEC (12.0-15.0) 06/06/16 19:00 INR 1.14 (0.83-1.16) 06/06/16 19:00 Gen - elderly but NAD HEENT - anicteric CV - RRR Chest - CTAN Abd - soft, BS+ Ext - no sig edema Neuro - decreased strength in R distal arm, 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
[2016-06-11] MEDS: SENNOSIDES/DOCUSATE SODIUM TAB PO PRN (14:01)
[2016-06-11] MEDS: HYDROmorphONE/DILAUDID 6 MG/30 ML PCA IV PRN ×2 (16:22)
--- NOTE | 2016-06-11 16:48 | SOAPPROG ---
SOAP Progress Note Assessment/Plan: Assessment: 1 day post op Left Femur Cephalomedullary Nail placement for Left subtrochanteric fracture Plan: Pain/VTE management per Hospitalist Service Weight bearing status: as tolerated. PT/OT Dispo per Hospitalist Service 06/11/16 16:41 06/11/16 16:49 Subjective: Mr. Murillo is feeling much better s/p L subtrochanteric ORIF. He is up in a chair and looks comfortable, he is receiving basal rate on FOOD SCIENCE PROFESSOR. He denies CP, SOB, and is eating without issue. Objective: Vital Signs Temp Pulse Resp BP Pulse Ox 36.9 C 80 16 112/79 94 06/11/16 16:00 06/11/16 16:00 06/11/16 16:00 06/11/16 16:00 06/11/16 16:00 Laboratory Results 06/10/16 05:09 06/10/16 05:09 06/10/16 06/11/16 06/12/16 05:59 05:59 05:59 Intake Total 1517 2487 1149 Output Total 1050 430 250 Balance 467 2057 899 PT 14.5 SEC (12.0-15.0) 06/06/16 19:00 INR 1.14 (0.83-1.16) 06/06/16 19:00 Well appearing in NAD Left hip/leg some edema surrounding left side of pelvis, no obvious ecchymosis dressings clean, dry, intact NVI distally good ROM of foot any ankle ICD10 Worksheet Patient Problems: Problems Problem Status Diagnosed 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
--- NOTE | 2016-06-11 19:20 | HOSPPROG ---
Hospitalist Progress Note Assessment/Plan: DIAGNOSIS: # LEFT FEMUR FRACTURE, PATHOLOGIC FRACTURE NOW W JANICE SCREW FIXATION # ONGOING SEVERE FOCAL SPINE PAIN WELL RIGHT CERVICAL RADICULOPATHY TO THE HAND WITH WEAKNESS # MULTIPLE METASTATIC LESIONS OF THE SPINE # LARGE INTRACARDIAC MASS, POSSIBLE FOCAL PRIMARY TUMOR THEY ARE # MEDIASTINAL PLEURA BASED LUNG MASS IN THE LEFT CHEST WHICH WOULD BE ANOTHER POSSIBLE PRIMARY I have reviewed the patient's care and current condition in detail with Tonny Dhillon and Dr. Garg today. 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 We did talk somewhat about possible primary lesions and the potential prognosis of this disease and he is very clear in understanding of this information. We did again review that he should engage in palliative care 5 directed at controlling his of focal pain lesions in his spine as well as hopefully prevent disability due to neurologic disease from his spine lesions. He is recovering well after his hip surgery and needs routine postop care and therapies after that. In terms of dealing with his spine disease it is important that we look critically at getting him stabilization for his upper thoracic spine lesion which is threatening his neurologic function. The patient has been reluctant to engage with surgical consultation. I have reviewed with Dr. Garg who is uncertain how well he would respond to radiation therapy. She is recommending that we engage neuro surgical evaluation. Will continue work with the patient on that. For now will continue with current pain management but in the next day or 2 I will change his continuous IV narcotic to long-acting oral or topical narcotic. Total bedside and care coordination time today greater than 55 minutes PLANS: -post op care and therapies for leg -again I suspect he will be greatly benefitted by either radiation therapy to the spine and or surgical stabilization of spine -continue general supportive and symptomatic care SUBJECTIVE: The patient's pain remains well controlled on his current narcotic regimen. He is eating well without nausea. He was able to stand and walk today with not very much pain in his leg postoperative day 1. OBJECTIVE Vitals reviewed: Stable without fever Exam: alert oriented skin warm dry color ok resps not labored lungs clear BSs heart regular abd soft nondistended nontender, bowel sounds present limbs preop R leg w swelling likley due to hematoma proximally, warm, no edema distally, good neuro fxn iv site ok PATHOLOGY REPORT: His biopsy showed carcinoma, unable to differentiate add no versus squamous versus adenosquamous, and the primary is unknown Objective: Vital Signs Temp Pulse Resp BP Pulse Ox 36.8 C 91 16 156/90 H 96 06/11/16 18:00 06/11/16 18:00 06/11/16 18:00 06/11/16 18:00 06/11/16 18:00 Laboratory Results 06/10/16 05:09 06/10/16 05:09 06/10/16 06/11/16 06/12/16 06:59 06:59 06:59 Intake Total 2487 1149 Output Total 1050 430 250 Balance -1050 2057 899 PT 14.5 SEC (12.0-15.0) 06/06/16 19:00 INR 1.14 (0.83-1.16) 06/06/16 19:00 ICD10 Worksheet Patient Problems: Problems Problem Status Diagnosed 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
[2016-06-12] MEDS: NS 1,000 ML IV SCH ×2 (05:14→20:53)
[2016-06-12] MEDS: DEXAMETHASONE 4 MG TAB PO SCH ×3 (09:08→18:54)
[2016-06-12] MEDS: FAMOTIDINE 20 MG TAB PO SCH ×2 (09:09→20:54)
[2016-06-12] MEDS: ENOXAPARIN 40 MG/0.4 ML SYR SC SCH (09:09)
[2016-06-12] MEDS: DICLOFENAC SODIUM 75 MG TAB PO SCH ×2 (09:09→20:54)
--- NOTE | 2016-06-12 11:35 | GCON ---
[f rep st] CONSULTATION NEUROSURGERY CONSULT NOTE DATE OF CONSULTATION: 06/12/2016 TIME SEEN: Patient was seen at approximately 10 a.m. on 06/12/2016 in the general care [facility] of [facility]. HPI: The patient is a 76-year-old man, who had a past medical history of prostate cancer which was t reated with radioactive seeds. He was very recently diagnosed with a large chest mass and had a path ologic fracture of the left hip, which was treated surgically. He has had at least 5 or 6 weeks of s ome mild to moderate upper back pain which at times is severe. He claims that the pain in his back i s nothing compared to the pain that he was having in his hip prior to fixation of the fracture. He a lso has an unintentional 30-pound weight loss. Upon workup here in the hospital of his tumors, he wa s found to have a lesion at T11 with a small posterior growth into the canal but no cord compression, and also has a very large lesion at T3 which is extending from the chest into the left pedicle, lami na, and transverse process of T3 with some canal compromise. The cord is shifted from left to right, although there is still some CSF visible around the spinal cord. There is certainly some canal sten osis at this level. The patient has not had any gross neurologic deficits. He has been evaluated by Oncology for chemotherapy and radiation; however, they felt that surgical resection may be a better option for this tumor therefore, we were consulted. REVIEW OF SYSTEMS: Ten-point review of systems is negative, other than that described in the HPI. PAST MEDICAL HISTORY: Prostate cancer. PAST SURGICAL HISTORY: 1. Radioactive seeds to the prostate. 2. Open reduction, internal fixation of a left hip. FAMILY HISTORY: Father had some sort of hematologic cancer and many family members had alcoholism. There is no other obvious history of chest masses. SOCIAL HISTORY: Patient is a remote smoker. He has never been , has no children, and does no t drink alcohol or use other drugs. ALLERGIES: No known drug allergies. MEDICATIONS: 1. [place]. 2. Voltaren. 3. Decadron. PHYSICAL EXAM: GENERAL: Currently, the patient is awake, alert, and oriented x3. He is very pleasa nt and conversant, and very clear on his wishes. NEUROLOGIC: His cranial nerves 2-12 are grossly no rmal. He has full 5/5 strength at the deltoid, biceps, triceps, and senior budget analyst, and finger extension on emily th arms. In the legs, he has 5/5 strength at the hip flexors and extensors, knee flexors and extenso rs, and plantar and dorsiflexion bilaterally. The deep tendon reflexes are normal. Sensation is nor mal. His toes are downgoing, and he does not have any Chaitanya's. There is no clonus. He does have some pain to palpation in the upper thoracic spine between the shoulder blades but otherwise, no sig nificant pain currently. His left hip flexion is a little difficult to test due to his recent hip fr acture. IMAGING: MRI of the brain was negative. MRI of the thoracic spine was as described in the HPI. Cer vical spine MRI shows some degenerative disease and the above-mentioned lesion at T3, but no obvious metastatic disease in the cervical spine. RESULTS: On 06/10/2016 the white blood cell count was 16.1, hemoglobin 13.9, hematocrit 41.3, platel et count was 222,000. His PT was 14.5, INR 1.1. Sodium was 135, potassium 4.1, BUN was 15, creatini ne 0.5. 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 The origin is somewhat unclear, but he has a noncompressive T11 lesion a nd a large lesion extending from the chest into the lateral components of T3 with some canal compromi se at that level. He does not have any current signs of myelopathy or weakness. I discussed at en with him the options,including chemotherapy and radiation versus surgical resection of the T3 lesi on out of the spinal elements with stabilization from T2-T4 on the left side. He is very clear in hi s wishes and expresses to me that he is likely going to choose not to have any therapy, radiation, ch emo, or surgical. He is very interested in investigating the new right to laws in [place], an d expresses that he may be interested in eventually pursuing euthanasia type of treatment. He is vinny y rational and thoughtful about these things, and we had a good conversation. He is clear in his wis hes against surgery at this point. I did discuss with him that at any point thereafter if he wishes to discuss surgery further, I would be happy to do this, and if he develops leg weakness we could cer tainly consider surgery at that time, but I certainly could not guarantee that his leg weakness would improve at that point. He understands all of these issues and is willing to proceed as describe. I did also speak with his oncologist, Dr. Garg, and told her of our discussion. Please do not hesitate to contact me if I can be of any further assistance. Thanks for the kind cons ultation. /[id number]/MODL
--- NOTE | 2016-06-12 11:58 | HOSPPROG ---
Hospitalist Progress Note Assessment/Plan: This patient comes to the hospital with multiple metastatic lesions with biopsy showing add no squamous carcinoma. The primary appears to most likely be chest/ lungs, but he has thoracic, myocardial, spine, left femur lesions. His original presentation is what is 1 of back pain with some right hand weakness and hypesthesia. He suffered a pathologic fracture of the left hip here in the hospital while standing and has had surgical fixation of that and has done very well with that surgery. DIAGNOSIS: # LEFT FEMUR FRACTURE, PATHOLOGIC FRACTURE NOW W JANICE SCREW FIXATION # ONGOING SEVERE FOCAL SPINE PAIN WELL RIGHT CERVICAL RADICULOPATHY TO THE HAND WITH WEAKNESS # MULTIPLE METASTATIC LESIONS OF THE SPINE # LARGE INTRACARDIAC MASS, POSSIBLE FOCAL PRIMARY TUMOR THEY ARE # MEDIASTINAL PLEURA BASED LUNG MASS IN THE LEFT CHEST WHICH WOULD BE ANOTHER POSSIBLE PRIMARY Once again today I had long discussion with this patient about his prognosis in terms of pain issues and potential disabilities from his tumor. We also had further discussion about the various treatments that can be used to reduce his pain and to guallpa off these disabilities including radiation, chemo, surgery. As in our past discussions, today he is fairly clear that he does not want to consider further surgeries at this time but would 1st like to explore possibilities for euthanasia as that is available in [place] at this time. He does understand that his tumor is likely terminal but also not likely the take his life any time in the near future. He does understand that he is at high risk for developing worsening pain and paresthesias, paralysis of right arm and both legs. He did speak at length with Dr. Noe about the same issues and he had the same answers and wishes expressed to Dr. Noe yesterday. At this time will need to continue rehabilitating him from his hip surgery. He is actually beginning to get up on his feet move around okay any may potentially able to go home in the next few days as opposed to senior living facility. We did not have at this hospital here a youth in a ship program in place, and I will look and see if there others that are actually up in running in [place] at this point however I am unaware of any center is with this program is actually in place now after the recent election. Total bedside and care coordination time today greater than 55 minutes PLANS: -post op care and therapies for leg -continue general supportive and symptomatic care -transition his ongoing continuous IV narcotic to long-acting oral narcotic today, and attempt to change his PUBLIC STENOGRAPHER to short-acting narcotic as well. -Home with outpatient therapy versus senior living facility in probably 2 days or thereabouts SUBJECTIVE: The patient's pain remains well controlled on his current narcotic regimen. He has not been up yet today. He is eating well. No other new symptoms OBJECTIVE Vitals reviewed: Stable without fever Exam: alert oriented skin warm dry color ok resps not labored lungs clear BSs heart regular abd soft nondistended nontender, bowel sounds present limbs preop R leg w swelling likley due to hematoma proximally, warm, no edema distally, good neuro fxn iv site ok PATHOLOGY REPORT: His biopsy showed carcinoma, unable to differentiate add no versus squamous versus adenosquamous, and the primary is unknown Objective: Vital Signs Temp Pulse Resp BP Pulse Ox 36.6 C 87 18 148/61 H 92 06/12/16 08:41 06/12/16 10:00 06/12/16 10:00 06/12/16 10:00 06/12/16 10:00 Laboratory Results 06/10/16 05:09 06/10/16 05:09 06/11/16 06/12/16 06/13/16 06:59 06:59 06:59 Intake Total 2487 2627.6 Output Total 430 800 Balance 2057 1827.6 PT 14.5 SEC (12.0-15.0) 06/06/16 19:00 INR 1.14 (0.83-1.16) 06/06/16 19:00 ICD10 Worksheet Patient Problems: Problems Problem Status Diagnosed 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
--- NOTE | 2016-06-12 12:15 | SOAPPROG ---
SOAP Progress Note Assessment/Plan: Assessment/Plan: 76 yo man w left upper lobe lung mass extending into epidural space w cord compression at T3, also w T11/12 met and epidural extension 1. Lung mass/mets - T11 soft tissue biopsy pointing to adenosquamous lung primary added molecular testing on the tumor Monday - sent to [facility] At this time, pt's main issue is pain; reports better control w TID steroids but still w SKI MAKER He is considering no therapy at this time and Right to Life assisted Suicide I am most concerned about the cord compression at T3 and neuro findings but admittedly, neuro exam is stable Appreciate NSG; pt would like to forgo surgical intervention at this time Brain MRI negative 2. Hip fracture - s/p ORIF 06/10; doing well from this standpoint 3. Intracardiac mass - LV/RV apex. appears intrinsic to myocardium and likely represents a met 4. Supportive Care- back on lovenox ppx today; cont pain control 06/12/16 12:12 Subjective: No acute events Denies neuro changes pain controlled +BM today Objective: Vital Signs Temp Pulse Resp BP Pulse Ox 36.6 C 87 18 148/61 H 92 06/12/16 08:41 06/12/16 10:00 06/12/16 10:00 06/12/16 10:00 06/12/16 10:00 Laboratory Results 06/10/16 05:09 06/10/16 05:09 06/11/16 06/12/16 06/13/16 05:59 05:59 05:59 Intake Total 2487 2627.6 Output Total 430 800 Balance 2057 1827.6 PT 14.5 SEC (12.0-15.0) 06/06/16 19:00 INR 1.14 (0.83-1.16) 06/06/16 19:00 Gen - NAD HEENT - anicteric CV - RRR Chest - CTAb Abd - soft, NT, BS+ Ext - no edema Neuro - no change ICD10 Worksheet Patient Problems: Problems Problem Status Diagnosed 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
[2016-06-12] MEDS: HYDROmorphONE/DILAUDID 6 MG/30 ML PCA IV PRN (13:45)
--- NOTE | 2016-06-12 13:46 | WOCRNPDOC ---
WOCRN Advanced Assessment Note - Skin Integrity Problem, Advanced Assess Coccyx Pressure Injury Dressing Type: Allevyn Life Dressing Description: Clean/Dry, Intact Exudate Amount: Scant Exudate Color: Reddish/Yellow Exudate Characteristic(s): Serosanguinous Integumentary Issue Intervention: Visualized Under Dressing Roula Wound Tissue: Blanching, Erythema, Raw (distal to coccyx in gluteal cleft) Roula Wound Swelling: Mild Wound Bed Color: Red Site Measurement - Head-to-Toe Length X Width X Depth (cm): 2.8cmx2.9cmx0.1cm Pressure Injury Stage: Stage 1, Stage 2 Skin Integrity Problem Comment: This injury, previously a stage I, is progessing into a stage II, with partial-thickness tissue loss noted along both L and R margins of wound. Medial aspect remains non-blanching erythema only. During assessment, patient admitted to being "on his back" instead of off- loading side to side per order. I suspect this is r/t to his recent L hip fx, which is making it uncomfortable and difficult for him to reposition. Reinforced the need to off-load with patient, and demonstrated how to do this with a pillow under his L hip. Report given to alliance manager Zach.
[2016-06-12] MEDS: ZOLPIDEM TARTRATE 5 MG TAB PO PRN (20:53)
[2016-06-12] MEDS: oxyCODONE IR 5 MG TAB PO PRN (20:54)
[2016-06-12] MEDS: LORazepam 0.5 MG TAB PO PRN (20:54)
[2016-06-13] MEDS: NS 1,000 ML IV SCH (06:28)
[2016-06-13] MEDS: oxyCODONE IR 5 MG TAB PO PRN ×2 (06:29→21:29)
--- NOTE | 2016-06-13 06:49 | SOAPPROG ---
SOAP Progress Note Assessment/Plan: Assessment: 2 day post op Left Femur Cephalomedullary Nail placement for Left subtrochanteric fracture Plan: Pain/VTE management per Hospitalist Service Weight bearing status: as tolerated. PT/OT Dispo per Hospitalist Service 06/11/16 16:41 06/11/16 16:49 06/13/16 06:46 Subjective: LATE ENTRY: Pt seen at 1800 last night (06/12/2016) Mr. Murillo is doing well this evening. His pain is well managed with the LODE MINER. He's been up to the bathroom with PT. He denies any cp, sob or nausea. 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
--- NOTE | 2016-06-13 09:23 | SOAPPROG ---
NAUN Progress Note Assessment/Plan: Assessment: 1) Metastatic poorly differentiated carcinoma (adenosquamous) 2) Left upper lobe lung mass with invasion of T3 3) T3 cord compression with LUE weakness 4) T11 met with epidural extension 5) Cardiac metastasis 6) Pathologic fx Left femoral trochanter s/p surgery 7) Pain secondary to #3 and #6 Plan: I had a long discussion with patient this AM. He does not want neurosurgery. He is not inclined to pursue aggressive treatment for his malignancy. He is understanding and accepting of the terminal nature of his cancer, and wants to pursue quality of life. We discussed the option of palliative XRT to T3 and T11 in an attempt to control pain and minimize risk of paralysis in the short term. He is open to this. I have discussed his case with Dr. Alexandra of Radiation Oncology. He will see the patient today. For now we will continue Dexamethasone and Dilaudid FAST FOOD FRY COOK. I think an eventual palliative care consult later this week would be helpful to assist patient in clearly defining his palliative care goals. His biopsy specimen has been sent for molecular analysis, to explore targeted therapy options. This is likely low yield. Code status : DNR/DNI. Patient's questions answered. 06/13/16 09:15 06/13/16 09:17 06/13/16 09:23 Subjective: Patient resting comfortably. Denies pain currently. Minimal weakness in Left upper extremity is unchanged. Objective: Vital Signs Temp Pulse Resp BP Pulse Ox 36.5 C 73 16 128/71 H 92 06/13/16 06:00 06/13/16 06:00 06/13/16 06:00 06/13/16 06:00 06/13/16 06:00 Laboratory Results 06/10/16 05:09 06/10/16 05:09 06/12/16 06/13/16 06/14/16 05:59 05:59 05:59 Intake Total 2627.6 2973 Output Total 800 600 Balance 1827.6 -600 2973 PT 14.5 SEC (12.0-15.0) 06/06/16 19:00 INR 1.14 (0.83-1.16) 06/06/16 19:00 - Time Spent With Patient Time Spent With Patient: 40 minutes Physical Exam - Physical Exam General Appearance: alert, no apparent distress EENT: PERRL/EOMI Cardiac/Chest: regular rate, rhythm Abdomen: non-tender, soft Skin: normal color Neuro/Psych: normal mood/affect, oriented x 3, other (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
[2016-06-13] MEDS: FAMOTIDINE 20 MG TAB PO SCH ×2 (11:56→21:31)
[2016-06-13] MEDS: DEXAMETHASONE 4 MG TAB PO SCH ×3 (11:56→21:34)
[2016-06-13] MEDS: DICLOFENAC SODIUM 75 MG TAB PO SCH ×2 (11:56→21:31)
[2016-06-13] MEDS: ENOXAPARIN 40 MG/0.4 ML SYR SC SCH (11:57)
--- NOTE | 2016-06-13 14:42 | GCON ---
[f rep st] CONSULTATION RADIATION ONCOLOGY CONSULTATION NOTE DATE OF CONSULTATION: 06/13/2016 REFERRING PHYSICIAN: Shireen Gonzales MD REASON FOR CONSULTATION: Metastatic, likely primary lung cancer with extensive bone metastases, being consulted for the role of palliative radiation. PATIENT IDENTIFICATION: The patient is a 76-year-old gentleman with a prior history of low-risk prostate cancer, status post prostate seed implantation approximately 10 years ago, who recently was admitted regarding a newly diagnosed metastatic lung adenocarcinoma, status post T11 paraspinal mass biopsy. On further imaging, he has widespread bony metastases to several areas of his thoracic vertebral bodies, and we are being consulted for the role of palliative radiation. HISTORY OF PRESENT ILLNESS: Once again, this patient was initially diagnosed with prostate cancer about 9-10 years ago, and was successfully treated with radioactive seed implantation. He had several followups and was known to be disease free, but did miss out on a few of the more recent followups. 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 It seemed to get better with Vicodin and was treated symptomatically. He also had 30 pounds of unintentional weight loss over the past 3-4 months. He developed severe right neck pain and shoulder pain that radiated down to his fingertips, causing some numbness in his bilateral fingertips. He had outside imaging that suggested cervical spine disease with masses seen at T2 to T3. There were also masses seen at T11. He was referred to see Dr. Carmen Garcia, who saw him in consultation on May. This was concerning for metastatic prostate cancer, and therefore, was worked up with a PSA, which came back normal, as well as CT scans of the chest, abdomen, and pelvis. The CT scans demonstrated a large left upper lobe mass measuring 6 x 4 cm near the heart and central mediastinal structures that was infiltrating into the T2-T3 vertebral bodies, and questionable cardiac metastases. After that clinic visit, Dr. Garcia recommended that he be admitted to [facility], and he was started on dexamethasone 4 mg b.i.d. On June 07, 2016, he had an ultrasound-guided biopsy of a T11 mass with pathology that revealed a metastatic poorly differentiated carcinoma favored to be a lung primary adenocarcinoma, but also had squamous features. He had subsequent imaging with a cervical and thoracic spinal MRI. The cervical spine MRI with and without contrast demonstrated a right-sided posterior T1 vertebral body metastatic disease, extending through the right pedicle onto the superior and inferior articulating facets. This was associated with a soft tissue enhancing mass posteriorly to the articular process of C7 and the C6-C7 facet joint. The mass circumferentially encases the right lateral posterior elements. The soft tissue mass causes a right lateral 6 mm extradural mass that mildly impinges on the thecal sac and encroaches on the right T1-2 and C7-T1 neural foramen. The cord is not obviously displaced or flattened. There is also a T3 vertebral body large metastases that expands and destroys the left posterior elements and significantly encroaches on the left T3 to T4, and to a lesser extent T2 to T3 foramen. The left lateral epidural mass at that level at least touches the cord without any overt signs of compression. The thoracic spine MRI performed pre and post contrast re-demonstrated an abnormal enhancing mass of the left pedicle and transverse process at T3 that extended to the left anterior epidural space with displacement of the cervical spinal cord toward the right. The mass extended to the left paraspinal soft tissues as well as extension in the left upper lobe mass. There was diffuse bone marrow replacement and enhancement of the soft tissues with associated enhancement of the T11 vertebral segment with extension of the tumor into the anterior epidural space causing moderate compression upon the spinal sac and moderate spinal stenosis. There was a soft tissue component extending into the right posterior paravertebral soft tissues. The extension measures 5.3 x 2.5 x 3 cm. There was also a small right anterior aspect T12 vertebral body metastases. On the day of June 10, 2016, unfortunately, the patient developed acute onset left hip pain, and x-rays revealed a comminuted intertrochanteric fracture of the left femur with varus angulation. On June 10, 2016, he was taken to the operating room for a left hip fixation. On June 12, 2016, Neurosurgery service consulted with the patient to discuss the role of decompression of the spinal cord and the thoracic spine. The patient has chosen not to proceed with radical surgery. There was also a brain MRI that was obtained that showed no intracranial metastases and some possible tiny acute infarcts in the biparietal white matter. INTERVAL HISTORY: Since the patient has been admitted to the hospital, he does overall feel better, particularly as he is recovering from his left hip fracture. He is on a VP DESIGN pump with Dilaudid, and his pain is usually controlled at a 5-6 level, down from a 7-8 without the VP DESIGN. He continues on his dexamethasone. He reports his back pain is not as severe after having the hip fracture. He does continue to have upper thoracic spine pain and discomfort , which does radiate to his right shoulder. He continues to have tingling and numbness in his right fingertips. 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 He has full continence of his bowel and bladder. He denies any loss of consciousness, seizure-like activity. He is able to ambulate to the bathroom, and is working with Physical Therapy on a daily basis and is very cautious with his gait. No recent falls. He does have some shortness of breath, although is saturating normally without oxygen. Denies any hemoptysis or cough. He does report the 30-pound weight loss, but no other constitutional symptoms. REVIEW OF SYSTEMS: A complete review of systems is obtained and is negative except for that mentioned above. PAST MEDICAL HISTORY: Prostate cancer as outlined above. PAST SURGICAL HISTORY: 1. Prostate seed implantation approximately 9 years ago. 2. Left hip fracture fixation on June 10, 2016. Otherwise, no major surgeries. FAMILY HISTORY: Noncontributory, with no history of malignancy in the family. SOCIAL HISTORY: I am meeting with the patient today in his hospital room, accompanied by 2 of his good friends, Lindsay and Pawel. The patient has never been and has previously lived alone at his house. He does have a smoking history in his 20s, when he was in the , but nothing long or substantial. He has no children. He has a very strong social support system. 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 HOSPITAL MEDICATIONS: 1. Tylenol. 2. Dexamethasone. 3. Diclofenac. 4. Enoxaparin. 5. Famotidine. 6. Hydromorphone VP DESIGN. 7. Lorazepam. 8. Naloxone. 9. Zofran. 10. Oxycodone as needed. 11. Promethazine. 12. Senokot. 13. Sodium chloride drip. 14. Zolpidem. ALLERGIES: No known drug allergies. PHYSICAL EXAMINATION: VITAL SIGNS: Blood pressure is 124/68, pulse is 57, respirations 17, oxygen saturation 92% on room air, temperature 36.6. GENERAL: The patient is a well-appearing, pleasant man, who is very alert and oriented , in no acute distress, sitting in a chair in his hospital room. HEAD AND NECK : Oral cavity and oropharynx are clear with no masses. Moist mucous membranes. No lesions. NECK: Supple with no cervical or supraclavicular lymphadenopathy. CARDIOVASCULAR: Regular rate and rhythm. Normal S1, S2. No murmurs, rubs or gallops. LUNGS: Clear to auscultation bilaterally. No wheezes, crackles or rubs. ABDOMEN: Soft, nontender, nondistended. Bowel sounds are normoactive. EXTREMITIES: Warm and well perfused, 2+ pulses. He has trace pitting edema in his left leg down to his foot, which is the side of his operation. Otherwise, no edema. LYMPHATICS: No palpable cervical, supraclavicular or axillary lymphadenopathy. NEUROLOGIC: Pupils equal, round, reactive to light. Extraocular muscles are intact. Uvula is midline. Tongue is midline. 5/5 strength in the upper head and neck muscle groups. 4/5 strength with medical microbiologist on the right hand and 5/5 strength on the left. He has 5/5 strength in the proximal upper extremities. Neurologic testing of his left lower extremity is limited from recent operation, but right seems to be strong. Gait exam deferred. Negative cerebellar testing. LABORATORY DATA: White blood cell count 16.13, hemoglobin 13.9, hematocrit 41.3 , platelets 222. Absolute neutrophil count is 12.89. PATHOLOGY: Metastatic adenosquamous primary lung cancer. 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 I am seeing him today at the request of Dr. Justin Gonzales for discussion of palliative radiation to some of his bone base metastases. I had a long discussion with Lindsay Ford, and Pawel today in the hospital regarding the diagnosis and management of metastatic adenosquamous lung cancer. I have reviewed his imaging in detail and discussed the results with Logan today in the hospital. The MRI is significant for large upper thoracic spine, approximately from T1 to T3, disease that is invading into the nearby vertebral bodies and causing spinal canal compromise at that level. In review of his prior CT scan of the chest, abdomen and pelvis, at least the mass at T3 would be a continuation of a larger 6 cm disease process in the left upper lobe of his lung, which is likely the site of primary. The tumor is invading into the vertebral body at that level and not compressing the cord but certainly involving the spinal canal. The other concerning site of metastasis is at the T11 paraspinal region. That does seem to be causing him some pain, and there is a soft anterior extent into the anterior portion of the spinal canal, which is possibly the site of impending spinal cord compromise or compression. The patient surprisingly is not very symptomatic from the sites of metastases. Certainly, his pain can be attributed to these areas as well as some of his brachial plexopathy symptoms that he is having in his right hand. He has discussed aggressive chemotherapy with Dr. Gonzales as well as possible immunotherapy in the future. We are awaiting mutational analysis of his tumor specimen before determining whether he would be a candidate for those certain types of immune therapy. He has had a discussion with Dr. Hosea Noe with neurosurgery regarding mechanical decompression of those areas, but the patient is certainly not interested in any aggressive types of treatment and is likely refusing any type of chemotherapy or surgical intervention. He is most interested in hearing about radiation. In terms of radiation, I stressed that the goals of treatment are palliative in nature, desiring to improve his pain, neurologic dysfunction, and prevent his symptoms from getting worse, thereby preserving the quality of life for as long as we can. I would recommend palliative radiation treatment over approximately 15 or 16 treatments to both the bulk of his thoracic spine disease from T1 to T3 as well as his lower thoracic spine disease at T11-T12. We discussed the logistics of delivering radiation, and the need for a planning appointment or simulation before mapping out his santos of radiation. I discussed the risks, benefits, and side effect profile of external beam palliative radiation with the patient today, which would include, but are not limited to, fatigue, skin irritation such as redness or peeling, dry cough, radiation pneumonitis, temporary worsening of his pain or pain flare at his sites of treatment, esophagitis which can manifest as an inability or pain with swallowing, permanent damage to the lung, spinal cord, bone, and the risk of a secondary malignancy. After our discussion today, the patient is still deciding which type of treatment he would want, although he has expressed in very clear terms that he does not want any aggressive treatment or curative treatment for this; specifically, no aggressive chemotherapy or surgery. He is interested in radiation, and he is also very interested in the recently passed legislation in [place], with dignity, and does express that he would like to proceed with getting the medications necessary to do that, if at any point he determines that his quality of life is not what he would want. I have exchanged contact information with the patient today in the hospital, and I have encouraged him to give me a call with any questions or concerns. He tentatively would like to re-visit with me on Monday morning, once he has had time to think about the radiation and whether that fits his overall goals of care. In the meantime, I do recommend a palliative care consult to follow him long-term for symptomatic control. After he is discharged from the hospital , whenever that may be, he is planning to reside at the [facility], which is an assisted living facility close by, as he is unable to care for himself fully at his home. I will re-visit with the patient on Monday to determine whether he wants to go forward with radiation. I will, in the meantime, tentatively schedule him for a radiation planning appointment that day in case he decides to go forward with it. /[id number]/MODL MTDD
[2016-06-13] MEDS: HYDROmorphONE/DILAUDID 6 MG/30 ML PCA IV PRN (14:57)
--- NOTE | 2016-06-13 15:53 | HOSPPROG ---
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 - will also start Neurontin at night -Home with outpatient therapy versus shelter facility in probably 2 days or thereabouts disposition: Patient is interested in hospice and does not wish to pursue any further invasive treatment or radiation. Patient is also interested in enquiring about the newly passed legislation regarding for in dignity. Subjective: reports 6/10 pain in low back. no new numbness or weakness. he expressed interest in the [place] with dignity legislation. he does not want radiation or invasive procedures Objective: Vital Signs Temp Pulse Resp BP Pulse Ox 36.5 C 88 20 147/78 H 94 06/13/16 12:00 06/13/16 12:00 06/13/16 12:00 06/13/16 12:00 06/13/16 12:00 Laboratory Results 06/10/16 05:09 06/10/16 05:09 06/12/16 06/13/16 06/14/16 05:59 05:59 05:59 Intake Total 2627.6 2973 Output Total 800 600 Balance 1827.6 -600 2973 PT 14.5 SEC (12.0-15.0) 06/06/16 19:00 INR 1.14 (0.83-1.16) 06/06/16 19:00 - Physical Exam Constitutional: no apparent distress, appears nourished, not in pain Cardiovascular: regular rate and rhythym, no murmur, rub, or gallop Respiratory: no respiratory distress, no rales or rhonchi, clear to auscultation Gastrointestinal: normoactive bowel sounds, soft, non-tender abdomen, no palpable masses ICD10 Worksheet Patient Problems: Problems Problem Status Diagnosed 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
[2016-06-13] MEDS ORDERED: BISACODYL 10 MG SUPP PR PRN (15:55)
[2016-06-13] MEDS ORDERED: MAGNESIUM HYDROXIDE 30 ML UDCUP PO PRN (15:55)
[2016-06-13] MEDS ORDERED: LACTULOSE 20 GM/30 ML UDCUP PO PRN (15:55)
[2016-06-13] MEDS: POLYETHYLENE GLYCOL 3350 17 GM PKT PO PRN (20:05)
[2016-06-13] MEDS: ZOLPIDEM TARTRATE 5 MG TAB PO PRN (21:29)
[2016-06-13] MEDS: LORazepam 0.5 MG TAB PO PRN (21:30)
[2016-06-13] MEDS: GABAPENTIN 100 MG CAP PO SCH (21:34)
[2016-06-14] MEDS: FAMOTIDINE 20 MG TAB PO SCH ×2 (09:34→21:57)
[2016-06-14] MEDS: GABAPENTIN 100 MG CAP PO SCH (09:34)
[2016-06-14] MEDS: DEXAMETHASONE 4 MG TAB PO SCH ×3 (09:34→18:45)
[2016-06-14] MEDS: DICLOFENAC SODIUM 75 MG TAB PO SCH ×2 (09:35→21:57)
[2016-06-14] MEDS: ENOXAPARIN 40 MG/0.4 ML SYR SC SCH (09:36)
[2016-06-14] MEDS ORDERED: HYDROmorphONE/DILAUDID 2 MG/ML SYR IVP PRN (11:11)
[2016-06-14] MEDS: LORazepam 0.5 MG TAB PO PRN (11:29)
[2016-06-14] MEDS: oxyCODONE IR 5 MG TAB PO PRN ×2 (11:29→14:47)
--- NOTE | 2016-06-14 13:56 | HOSPPROG ---
Hospitalist Progress Note Assessment/Plan: This is a 76-year-old male with history of prostate cancer presented hospital with problems walking found to have: # Widely metastatic poorly differentiated adenosquamous carcinoma most likely from a left upper lobe lung primary # pathologic fracture of the left femur status post ORIF # multiple metastatic lesions to the spine # large intracardiac mass PLAN: -post op care and therapies for leg -continue general supportive and symptomatic care -dc facility attendant and continue OxyContin and Oxyir for breakthrough - increase Neurontin -Home with outpatient therapy versus intermediate facility disposition: Patient is interested in hospice and does not wish to pursue any further invasive treatment or radiation. Patient is also interested in enquiring about the newly passed legislation regarding for in dignity. Plan for hospice consult Subjective: back and pelvic pain 09/21. no new neuro complaints Objective: Vital Signs Temp Pulse Resp BP Pulse Ox 36.8 C 110 H 14 112/86 H 92 06/14/16 12:13 06/14/16 12:13 06/14/16 12:13 06/14/16 12:13 06/14/16 12:13 Laboratory Results 06/10/16 05:09 06/10/16 05:09 06/13/16 06/14/16 06/15/16 05:59 05:59 05:59 Intake Total 3173 1.7 Output Total 600 1600 326 Balance -600 1573 -324.3 PT 14.5 SEC (12.0-15.0) 06/06/16 19:00 INR 1.14 (0.83-1.16) 06/06/16 19:00 - Physical Exam Constitutional: no apparent distress, appears nourished, not in pain Ears, Nose, Mouth, Throat: moist mucous membranes, hearing normal, ears appear normal, no oral mucosal ulcers Cardiovascular: regular rate and rhythym, no murmur, rub, or gallop Gastrointestinal: normoactive bowel sounds, soft, non-tender abdomen, no palpable masses Neurologic: AAOx3, sensation intact bilaterally ICD10 Worksheet Patient Problems: Problems Problem Status Diagnosed 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
--- NOTE | 2016-06-14 14:09 | SOAPPROG ---
SOAP Progress Note Assessment/Plan: Assessment: 1) Metastatic poorly differentiated carcinoma (adenosquamous) 2) Left upper lobe lung mass with invasion of T3 3) T3 cord compression with LUE weakness 4) T11 met with epidural extension 5) Cardiac metastasis 6) Pathologic fx Left femoral trochanter s/p surgery 7) Pain secondary to #3 and #6 Plan: I had another discussion with Mr. Murillo today. He does not want neurosurgery. He is not inclined to pursue aggressive treatment for his malignancy. He is understanding and accepting of the terminal nature of his cancer, and wants to pursue quality of life. Yesterday he met with Dr. Toribio to discuss palliative XRT to T3 and T11 in an attempt to control pain and minimize risk of paralysis in the short term. He would like to do this. This presents a potential logistical issue, as a SNF may not be willing to transport him back and forth to radiation treatment. I have involved case management to look into this, and to explore options. For now we will continue Dexamethasone. 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 I think a palliative care consult would be helpful to assist patient in clearly defining his palliative care goals once he has completed XRT. He is open to this , and I will order a palliative care consult. His biopsy specimen has been sent for molecular analysis, to explore targeted therapy options. This is likely low yield. Code status : DNR/DNI. Patient's questions answered. Subjective: Patient met with Dr. Toribio of Radiation Oncology yesterday. He would like to pursue palliative XRT. Pain better today. Objective: Vital Signs Temp Pulse Resp BP Pulse Ox 36.8 C 110 H 14 112/86 H 92 06/14/16 12:13 06/14/16 12:13 06/14/16 12:13 06/14/16 12:13 06/14/16 12:13 Laboratory Results 06/10/16 05:09 06/10/16 05:09 06/13/16 06/14/16 06/15/16 05:59 05:59 05:59 Intake Total 3173 1.7 Output Total 600 1600 326 Balance -600 1573 -324.3 PT 14.5 SEC (12.0-15.0) 06/06/16 19:00 INR 1.14 (0.83-1.16) 06/06/16 19:00 - Time Spent With Patient Time Spent With Patient: 25 minutes Physical Exam - Physical Exam General Appearance: alert, no apparent distress EENT: PERRL/EOMI Neuro/Psych: normal mood/affect, oriented x 3, other (Mild RUE weakness. Unchanged) ICD10 Worksheet Patient Problems: Problems Problem Status Diagnosed 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
[2016-06-15] MEDS: oxyCODONE IR 5 MG TAB PO PRN ×2 (07:39→14:09)
[2016-06-15] MEDS: SENNOSIDES/DOCUSATE SODIUM TAB PO PRN (09:48)
[2016-06-15] MEDS: GABAPENTIN 100 MG CAP PO SCH (09:50)
[2016-06-15] MEDS: DEXAMETHASONE 4 MG TAB PO SCH ×3 (09:51→18:31)
[2016-06-15] MEDS: DICLOFENAC SODIUM 75 MG TAB PO SCH ×2 (09:51→20:41)
[2016-06-15] MEDS: FAMOTIDINE 20 MG TAB PO SCH ×2 (09:51→20:41)
[2016-06-15] MEDS: ENOXAPARIN 40 MG/0.4 ML SYR SC SCH (09:52)
--- NOTE | 2016-06-15 10:25 | HOSPPROG ---
Hospitalist Progress Note Assessment/Plan: This is a 76-year-old male with history of prostate cancer presented hospital with problems walking found to have: # Widely metastatic poorly differentiated adenosquamous carcinoma most likely from a left upper lobe lung primary # pathologic fracture of the left femur status post ORIF # multiple metastatic lesions to the spine # large intracardiac mass PLAN: -post op care and therapies for leg -continue general supportive and symptomatic care -now off psychologist industrial organizational continue OxyContin and Oxyir for breakthrough - increase Neurontin to bid dosing -dc to snf when arrangements are in place -plan to start palliative radiation today disposition: Patient is interested in hospice and does not wish to pursue any further invasive treatment or radiation. Patient is also interested in enquiring about the newly passed legislation regarding for in dignity. Plan for hospice consult Subjective: pain controlled off psychologist industrial organizational. denies new numbness or weakness Objective: Vital Signs Temp Pulse Resp BP Pulse Ox 34.9 C L 50 L 14 118/78 92 06/15/16 07:40 06/15/16 07:40 06/15/16 07:40 06/15/16 07:40 06/15/16 07:40 Laboratory Results 06/10/16 05:09 06/10/16 05:09 06/14/16 06/15/16 06/16/16 05:59 05:59 05:59 Intake Total 3173 1251.7 Output Total 1600 826 225 Balance 1573 425.7 -225 PT 14.5 SEC (12.0-15.0) 06/06/16 19:00 INR 1.14 (0.83-1.16) 06/06/16 19:00 - Physical Exam Constitutional: no apparent distress, appears nourished, not in pain Cardiovascular: regular rate and rhythym, no murmur, rub, or gallop Respiratory: no respiratory distress, no rales or rhonchi, clear to auscultation Gastrointestinal: normoactive bowel sounds, soft, non-tender abdomen, no palpable masses ICD10 Worksheet Patient Problems: Problems Problem Status Diagnosed 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
--- NOTE | 2016-06-15 15:22 | SOAPPROG ---
SOARAM[facility] Progress Note Assessment/Plan: Assessment: 1) Metastatic poorly differentiated carcinoma (adenosquamous) 2) Left upper lobe lung mass with invasion of T3 3) T3 cord compression with LUE weakness 4) T11 met with epidural extension 5) Cardiac metastasis 6) Pathologic fx Left femoral trochanter s/p surgery 7) Pain secondary to #3 and #6 Plan: Mr. Murillo is not inclined to pursue aggressive treatment for his malignancy. He is understanding and accepting of the terminal nature of his cancer, and wants to pursue quality of life. Today he had CT simulation and will begin palliative XRT to T3 and T11 tomorrow in an attempt to control pain and minimize risk of paralysis in the short term. He would like to do this. The patient will be transferred to [facility] in the next few days, and will complete his XRT (15 planned treatments) there. For now we will continue Dexamethasone. 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 He met with palliative care earlier today, and plans to enroll on Hospice once his radiation has been completed. His biopsy specimen has been sent for molecular analysis, to explore targeted therapy options. This is likely low yield. Code status : DNR/DNI. Patient's questions answered. Subjective: Patient had CT simulation today in preparation to begin palliative XRT tomorrow. Objective: Vital Signs Temp Pulse Resp BP Pulse Ox 36.8 C 107 H 18 142/80 H 91 L 06/15/16 12:00 06/15/16 12:00 06/15/16 12:00 06/15/16 12:00 06/15/16 12:00 Laboratory Results 06/10/16 05:09 06/10/16 05:09 06/14/16 06/15/16 06/16/16 05:59 05:59 05:59 Intake Total 3173 1251.7 Output Total 1600 826 225 Balance 1573 425.7 -225 PT 14.5 SEC (12.0-15.0) 06/06/16 19:00 INR 1.14 (0.83-1.16) 06/06/16 19:00 - Time Spent With Patient Time Spent With Patient: 20 minutes Physical Exam - Physical Exam General Appearance: alert, no apparent distress Respiratory: lungs clear Cardiac/Chest: regular rate, rhythm Neuro/Psych: normal mood/affect, oriented x 3 ICD10 Worksheet Patient Problems: Problems Problem Status Diagnosed 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
--- NOTE | 2016-06-15 17:10 | PDPCPN ---
Palliative Care Progress Note Assessment/Plan: Referring provider: Dr Higgins Reason for consult: Complex medical decision making Symptom control HPI: Lev Murillo is a 76 yo male with PMH prostate CA admitted to the hospital for weakness and pain. Found to have bone mets with T3 compression fx and pathological fx of left hip s/p ORIF. Oncology consulted and radiation planned to start today. Patient is not interested in any other treatments for cancer. Palliative care consulted for complex medical decision making. Met with Lev and friend Nataliia at the bedside this morning. Lev was very clear in his wishes for with dignity and to not prolong his life. He states quality of life to him means being able to mentally interact with people and perhaps help others who are in his same situation. He feels right now he still has pretty good quality of life. He does not want to be in pain and is hoping radiation will help his pain as well as lessen the risk of further paralysis. He is accepting of the terminal nature of his disease and therefore does not want further oncology interventions. His focus is on comfort and not returning back to the hospital as "what would be the point". He is very much also interested in the right to act and is researching this with the help of friends. Filled out a MOST form today with DNR/DNI. Assessment: Physical: - Pain: back pain from bone mets - on oxycontin 10mg BID with oxy IR and working well - gabapentin BID - dex 4mg TID - voltaren oral scheduled - constipation - at risk with opiates - would schedule senna with colace instead of PRN while on opiates Emotional/psychological: doing ok. has a lot of support from friends. Advanced Care Planning: Is patient decisional?: Yes Code Status: DNR/DNI POA: Mayuri is MDPOA. Plan: Going to [facility] for radiation. Does not want aggressive medical interventions for his cancer and prefers with dignity. Subjective: My pain is much better today Objective: Social History: Has close friends very involved. Medication list reviewed ROS: General: fatigue, weakness, weight loss ENT: negative Resp: negative GI: negative : negative MS: back, abdominal pain Skin: negative Neuro:upper arm weakness Psych: negative Functional assessment: PPS: 50% Functional status: needs assistance with ADLs. Vital Signs Temp Pulse Resp BP Pulse Ox 36.6 C 72 16 155/88 H 95 06/15/16 16:15 06/15/16 16:15 06/15/16 16:15 06/15/16 16:15 06/15/16 16:15 Laboratory Results 06/10/16 05:09 06/10/16 05:09 06/14/16 06/15/16 06/16/16 05:59 05:59 05:59 Intake Total 3173 1251.7 Output Total 1600 826 225 Balance 1573 425.7 -225 PT 14.5 SEC (12.0-15.0) 06/06/16 19:00 INR 1.14 (0.83-1.16) 06/06/16 19:00 Physical Exam - Physical Exam General Appearance: alert, no apparent distress Respiratory: No respiratory distress, No accessory muscle use Skin: normal color, warm/dry Extremities: No pedal edema Neuro/Psych: alert, oriented x 3 ICD10 Worksheet Patient Problems: Problems Problem Status Diagnosed 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 Palliative care encounter Acute - ICD10 Problem Qualifiers (1) Palliative care encounter
[2016-06-15] MEDS: GABAPENTIN 300 MG CAP PO SCH (20:41)
[2016-06-15] MEDS ORDERED: GABAPENTIN 100 MG CAP PO SCH (21:00)
[2016-06-16] MEDS: DEXAMETHASONE 4 MG TAB PO SCH ×3 (08:40→18:52)
[2016-06-16] MEDS: FAMOTIDINE 20 MG TAB PO SCH ×2 (08:41→20:35)
[2016-06-16] MEDS: GABAPENTIN 300 MG CAP PO SCH ×2 (08:41→20:35)
[2016-06-16] MEDS: DICLOFENAC SODIUM 75 MG TAB PO SCH ×2 (08:41→20:35)
[2016-06-16] MEDS: ENOXAPARIN 40 MG/0.4 ML SYR SC SCH (08:43)
[2016-06-16] MEDS: SENNOSIDES/DOCUSATE SODIUM TAB PO PRN (08:49)
--- NOTE | 2016-06-16 09:25 | HOSPPROG ---
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 Patient is also interested in enquiring about the newly passed legislation regarding for in dignity. Subjective: pain controlled 08/22. ambulating. last bm 2 days ago. plans for radiation today Objective: Vital Signs Temp Pulse Resp BP Pulse Ox 36.4 C 61 18 156/90 H 93 06/16/16 07:45 06/16/16 07:45 06/16/16 07:45 06/16/16 07:45 06/16/16 07:45 Laboratory Results 06/10/16 05:09 06/10/16 05:09 06/15/16 06/16/16 06/17/16 05:59 05:59 05:59 Intake Total 1251.7 1100 Output Total 826 1325 Balance 425.7 -225 PT 14.5 SEC (12.0-15.0) 06/06/16 19:00 INR 1.14 (0.83-1.16) 06/06/16 19:00 - Physical Exam Constitutional: no apparent distress, appears nourished, not in pain Cardiovascular: regular rate and rhythym, no murmur, rub, or gallop Respiratory: no respiratory distress ICD10 Worksheet Patient Problems: Problems Problem Status Diagnosed 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 Palliative care encounter Acute
[2016-06-16] MEDS: POLYETHYLENE GLYCOL 3350 17 GM PKT PO PRN (15:28)
[2016-06-16] MEDS: oxyCODONE IR 5 MG TAB PO PRN (15:28)
[2016-06-16] MEDS: SENNOSIDES/DOCUSATE SODIUM TAB PO SCH (20:35)
--- NOTE | 2016-06-16 21:54 | SOAPPROG ---
NAUN Progress Note Assessment/Plan: Assessment: Plan: 06/08/16 22:34 Saw patient tonight. There is an evident of sub trochanteric fracture on the left w/o trauma. Combined with known cancer/bone metas. this would be considered a pathological fracture. Radiographs fit this. He lies in bed, comfortable, pain well managed, knee/hip slightly flexed with good ankle/foot mobility and NV intact. I decided not to apply traction due to him reporting feeling comfortable w/o deficit and not being in Ortho unit - nurses on thsi floor did not feel comfortable with it. He recently ate so will not go to surgery tonight. I will try and arrange a surgical procedure for him in the next days and will contact the floor as for NPO. Dr Jimenes 06/16/16 21:53 Saw patient today for nailing follow up. doing well, was walking around, no issues or complaints. XR shows good alignment and fixation. minimal incision bruising, clean. NV intact. Dr Jimenes Objective: Vital Signs Temp Pulse Resp BP Pulse Ox 36.7 C 66 18 108/67 93 06/16/16 20:00 06/16/16 20:00 06/16/16 20:00 06/16/16 20:00 06/16/16 20:00 Laboratory Results 06/10/16 05:09 06/10/16 05:09 06/15/16 06/16/16 06/17/16 05:59 05:59 05:59 Intake Total 1251.7 1100 850 Output Total 826 1325 Balance 425.7 -225 850 PT 14.5 SEC (12.0-15.0) 06/06/16 19:00 INR 1.14 (0.83-1.16) 06/06/16 19:00 ICD10 Worksheet Patient Problems: Problems Problem Status Diagnosed 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 Palliative care encounter Acute
[2016-06-17 07:59] VITALS: BP 140/64; PULSE 53; RESP 16; TEMP 98.1; O2SAT 96
[2016-06-17] MEDS: oxyCODONE IR 5 MG TAB PO PRN ×3 (08:36→14:54)
[2016-06-17] MEDS: DEXAMETHASONE 4 MG TAB PO SCH ×2 (08:48→12:27)
[2016-06-17] MEDS: SENNOSIDES/DOCUSATE SODIUM TAB PO SCH (08:49)
[2016-06-17] MEDS: FAMOTIDINE 20 MG TAB PO SCH (08:49)
[2016-06-17] MEDS: ENOXAPARIN 40 MG/0.4 ML SYR SC SCH (08:49)
[2016-06-17] MEDS: DICLOFENAC SODIUM 75 MG TAB PO SCH (08:49)
[2016-06-17] MEDS: GABAPENTIN 300 MG CAP PO SCH (08:50)
--- NOTE | 2016-06-17 09:23 | WOCRNPDOC ---
WOCRN Advanced Assessment Note - Skin Integrity Problem, Advanced Assess Coccyx Pressure Injury Dressing Type: Allevyn Life Dressing Description: Clean/Dry, Intact Exudate Amount: None Exudate Characteristic(s): None Integumentary Issue Intervention: Visualized Under Dressing Roula Wound Tissue: Blanching, Erythema, Intact Roula Wound Swelling: None Wound Bed Color: Red Pressure Injury Stage: Stage 1 Pressure Injury Present on Admit: No Skin Integrity Problem Comment: Site improved since previous assessment on 06/12 , with area of previous partial-thickness tissue loss on both R and L lateral margins resolved. There remains an area of non-blanching erythema, consistent w / stage I pressure injury, just to the R of patient's coccyx. L side now blanching sluggishly. Patient reports off-loading site while in bed. Continue w / Allevyn Life dressing for portection, tuns q. 2, and Accu-max.
--- NOTE | 2016-06-17 11:31 | PDIAF ---
- Diagnosis Diagnosis: metastatic lung cancer Code Status: Do Not Resuscitate - Medication Management Discharge Medications: Medications to Continue on Transfer Dexamethasone [Decadron 4 MG (*)] 4 mg PO BID 06/06/16 [Last Taken 06/06/16 07: 00] Diclofenac Sodium [Voltaren 75 MG (*)] 75 mg PO BID 06/06/16 [Last Taken Unknown ] Acetaminophen [Tylenol 325mg (*)] 650 mg PO Q4HRS PRN #0 tab 06/17/16 [Last Taken Unknown] Famotidine [Pepcid 20 MG (*)] 20 mg PO BID #0 tab 06/17/16 [Last Taken Unknown] Gabapentin [Neurontin 300 MG (*)] 300 mg PO BID #0 cap 06/17/16 [Last Taken Unknown] LORazepam [Ativan (*)] 0.5 - 1 mg PO Q8HRS PRN #0 tab 06/17/16 [Last Taken Unknown] Polyethylene Glycol 3350 [Miralax 17 gm (*)] 17 gm PO DAILY PRN #0 pkt 06/17/16 [Last Taken Unknown] Sennosides/Docusate Sodium [Senokot-S] 0 tab PO BID #0 tab 06/17/16 [Last Taken Unknown] Zolpidem Tartrate [Ambien 5MG (*)] 5 - 10 mg PO HS PRN #0 tab 06/17/16 [Last Taken Unknown] oxyCODONE CR [Oxycontin] 10 mg PO BID #0 tab 06/17/16 [Last Taken Unknown] oxyCODONE IR [Oxycodone Ir (*)] 5 - 10 mg PO Q3HRS PRN #0 tab 06/17/16 [Last Taken Unknown] Discharge Medications: Refer to the Discharge Home Medication list for PRN reason. - Orders Services needed: Registered Nurse, Physical Therapy, Occupational Therapy Diet Recommendation: no restrictions on diet Diet Texture: Regular Texture Diet - Follow Up Care Current Providers and Referrals: Mathieu Colorado MD [Primary Care Provider] -
--- NOTE | 2016-06-17 13:12 | GDS ---
[f rep st] DISCHARGE SUMMARY DISCHARGE DIAGNOSES: 1. Widely metastatic poorly differentiated adenosquamous carcinoma from the lung. 2. Pathologic fracture of the left femur status post ORIF. 3. Multiple metastatic lesions to the spine, as well as a large intracardiac mass. CONSULTANTS: 1. Dr. Jimenes, Orthopedic Surgery. 2. [facility]. 3. Hospice and palliative care. 4. Hosea Noe MD, Radiation Oncology. 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 The patient was found to have a subtrochanteric fracture on the left without trauma. He was subsequently taken to the operating room on 06/10/2016, where he underwent left femur surgic al fixation with a cephalomedullary nail. Postoperatively the patient has done well. 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 He was also started on Neurontin for s uspected neuropathic pain. The patient was seen by Radiation Oncology who offered palliative radiation, which has been started. On day of discharge, the patient is comfortable and plans to discharge to a group home facility for further rehabilitation and outpatient palliative radiation. The patient has been very clear wit h his wishes regarding hospice and avoiding invasive procedures given his terminal disease prognosis. PHYSICAL EXAM: VITAL SIGNS: On day of discharge, blood pressure 140/64, pulse of 53, respiratory ra te 16, O2 sat 96% on room air, temperature afebrile. GENERAL: No acute distress. HEART: S1, S2. LUNGS: Clear. ABDOMEN: Soft. PROCEDURES DONE THIS HOSPITAL STAY: Left femur surgical fixation with a cephalomedullary nail done b y Dr. Jimenes on 06/10/2016. DISCHARGE MEDICATIONS: Please refer to discharge medication reconciliation in [facility]. DISCHARGE INSTRUCTIONS: The patient will be transferred to [facility] on hospice, where he will cont inue with supportive care for his pain, as well as palliative radiation. /[id number]/MODL
== END 2016-06-17 15:00 | DRG 481 ==
LOC: F1N 16:37 → OBSVTOIN 17:09
PROVIDERS: ADMIT Internal Medicine; ATTEND Internal Medicine
PROC: 0JB73ZX Excision of Back Subcutaneous Tissue and Fascia, Percutaneous Approach, Diagnostic (ICD-10-PCS; 2016-06-07)
PROC: 0QS706Z Reposition Left Upper Femur with Intramedullary Internal Fixation Device, Open Approach (ICD-10-PCS; principal; 2016-06-10 13:45)
DX: C79.51 Secondary malignant neoplasm of bone (principal); M84.552A Pathological fracture in neoplastic disease, left femur, initial encounter for fracture; C34.12 Malignant neoplasm of upper lobe, left bronchus or lung; C79.89 Secondary malignant neoplasm of other specified sites; L89.151 Pressure ulcer of sacral region, stage 1; G89.29 Other chronic pain; Z66 Do not resuscitate; Z85.46 Personal history of malignant neoplasm of prostate; Z80.8 Family history of malignant neoplasm of other organs or systems
CPT/HCPCS: 82784-90; 86334-90; 97116-GP; 97161-GP; 97164-GP; 97166-GO; 97535-GO; A9585; C1713; G8978-GP-CJ; G8978-GP-CK; G8979-GP-CI; G8979-GP-CJ; G8987-GO-CJ; G8988-GO-CI; J0690; J1100; J1170; J1650; J2250; J2405; J2704; J3010

== ENCOUNTER 2016-06-20 10:02 | Emergency (ER) | payer OTHER ==
--- NOTE | 2016-06-20 10:02 | EDPHY ---
H & P Constitutional: Initial Vital Signs Temperature (C) 36.7 C 06/20/16 10:02 Heart Rate 102 H 06/20/16 10:02 Respiratory Rate 18 06/20/16 10:02 Blood Pressure 127/79 H 06/20/16 10:02 O2 Sat (%) 92 06/20/16 10:02 O2 Delivery Mode Room Air Allergies/Adverse Reactions: No Known Allergies Allergy (Unverified 11/27/12 11:21) Home Medications: Medication Instructions Recorded Dexamethasone [Decadron 4 MG (*)] 4 mg PO BID 06/06/16 Diclofenac Sodium [Voltaren 75 MG 75 mg PO BID 06/06/16 (*)] Acetaminophen [Tylenol 325mg (*)] 650 mg PO Q4HRS PRN #0 tab 06/17/16 Famotidine [Pepcid 20 MG (*)] 20 mg PO BID #0 tab 06/17/16 Gabapentin [Neurontin 300 MG (*)] 300 mg PO BID #0 cap 06/17/16 LORazepam [Ativan (*)] 0.5 - 1 mg PO Q8HRS PRN #0 tab 06/17/16 Polyethylene Glycol 3350 [Miralax 17 gm PO DAILY PRN #0 pkt 06/17/16 17 gm (*)] Sennosides/Docusate Sodium 0 tab PO BID #0 tab 06/17/16 [Senokot-S] Zolpidem Tartrate [Ambien 5MG (*)] 5 - 10 mg PO HS PRN #0 tab 06/17/16 oxyCODONE CR [Oxycontin] 10 mg PO BID #0 tab 06/17/16 oxyCODONE IR [Oxycodone Ir (*)] 5 - 10 mg PO Q3HRS PRN #0 tab 06/17/16 Medical Decision Making ED Course/Re-evaluation: CHIEF COMPLAINT: Right humerus pain HISTORY OF PRESENT ILLNESS: The patient is a 76 y/o male arriving via EMS complaining of right humeral head pain secondary to lifting a light weight 2 days ago. He has a history of metastatic lung and prostate cancer with multiple spinal metastases diagnosed 2 weeks ago during admission for pathological left femur fracture and repair. Two days ago, he was lifting a 6lb dumbbell at PT and felt a "sudden snap" in the proximal portion of his right humerus. On the same day he fell while in the bathroom onto his right shoulder, causing another snap and more pain. He believes he has a fracture humerus. No weakness or paresthesias. No other injuries from the fall. REVIEW OF SYSTEMS: A 10 point review of systems was performed and is negative with the exception of the elements mentioned in the history of present illness. PHYSICAL EXAM: HR, BP, O2 Sat, RR. Temp noted General Appearance: Alert, well hydrated, appropriate, and non-toxic appearing. Head: Atraumatic without scalp tenderness or obvious injury Eyes: Pupils equal, round, reactive to light and accommodation, EOMI, no trauma , no injection. Ears: Clear bilaterally, no perforation, normal landmarks Nose: Atraumatic, no rhinorrhea, clear. Throat: There is no erythema or exudates, no lesions, normal tonsils, mucus membranes moist. Neck: Supple, 2+ carotid upstroke, nontender, no lymphadenopathy. Respiratory: No retractions, no distress, no wheezes, and no accessory muscle use. Lungs are clear to auscultation bilaterally. Cardiovascular: Regular rate and rhythm, no murmurs, rubs, or gallops. Bilateral carotid, radial, dorsalis pedis, and posterior tibial pulses intact. Good capillary refill all extremities. Gastrointestinal: Abdomen is soft, nontender, non-distended, no masses, no rebound, no guarding, no peritoneal signs. Musculoskeletal: Tenderness and deformity to right proximal humerus with ROM limited by pain, ongoing post-surgical tenderness and limited ROM to left femur. Neurological: Alert, appropriate, and interactive. The patient has normal DTRs and non-focal cranial nerves, motor, sensory, and cerebellar exam. Skin: No rashes, good turgor, no nodules on palpation. Past medical history: Wildly metastatic prostate/lung cancer with known metastases to spine and lungs. Past surgical history: Femur fracture repair, radioactive beads to prostate Family history: Noncontributory Social history: Single, briefly former smoker, lives at [facility] Ortho: Dr. Jimenes prior medical records reviewed including admission 06/06/16 for difficulty walking and pain and pathologic left femur fracture. DIAGNOSTICS/PROCEDURES/CRITICAL CARE TIME: Study: Humerus x-ray Indication: Pain, metastatic cancer Results: Humerus x-ray was obtained. The results of the study are pathological humeral neck fracture. The study was read by the radiologist, Dr. Dee. I viewed the images myself on the PACS system. DIFFERENTIAL DIAGNOSIS: The differential diagnosis for the patient's trauma included but was not limited to pathological humeral fracture, intracranial injury, long bone and pelvic bone fractures, spinal injury, intra-abdominal injury, and intra-thoracic injury. MEDICAL DECISION MAKING: This is a 76 y/o male with active metastatic lung and prostate cancer and recent pathologic fracture of his left femur who presents with two days of pain and deformity to this right humerus with another suspected pathologic fracture. He initially had pain after lifting a 6lb weight and then fell on the same shoulder later that day. He has tenderness and deformity to his right proximal humerus and is neurovascularly intact on exam. His pain is manageable at this time. Plan for x-ray imaging of his humerus. 10mg Oxy IR administered for pain. X-ray reveals pathological right humeral neck fracture. Patient will be placed in splint and referred to his orthopedist , Dr. Jimenes, for follow up. He is comfortable with this plan. Return precautions given. - Data Points Medications Given: Discontinued Medications Oxycodone HCl (Oxycodone Ir) 10 mg PO EDNOW ONE Stop: 06/20/16 10:52 Last Admin: 06/20/16 10:51 Dose: 10 mg Departure - Departure Disposition: Home, Routine, Self-Care Clinical Impression: Pathological fracture of humerus Qualifiers: Encounter type: initial encounter Pathology associated with fracture: neoplastic disease Laterality: right Qualifier Code: (M84.521A) Pathological fracture in neoplastic disease, right humerus, initial encounter for fracture Condition: Good Instructions: Arm Fracture in Adults (ED), Proximal Humerus Fracture (ED) Additional Instructions: 1. Use OxyIR as prescribed when needed for pain. 2. Wear splint until follow up. 3. Follow up with Dr. Jimenes in the next 2-3 days. 4. Return to the ED for severe pain, dramatic increase in swelling, weakness or numbness in your hand, or other worsening of condition. Referrals: Mathieu Colorado MD [Primary Care Provider] - As per Instructions Marlo Jimenes MD [Medical Doctor] - As per Instructions Report Scribed for: Krishna Curtis Report Scribed by: Jojo Hilliard Date of Report: 06/20/16 Time of Report: 10:05
[2016-06-20 10:17] VITALS: RESP 18
[2016-06-20] MEDS ORDERED: oxyCODONE IR 5 MG TAB ONE (10:50)
[2016-06-20] MEDS ORDERED: oxyCODONE IR 5 MG TAB PO ONE (10:51)
--- NOTE | 2016-06-20 10:52 | DX ---
Right Humerus, Four Views 9:55 a.m. Clinical History: 76-year-old male with a history of prostate cancer and lung adenocarcinoma presenti ng to the ED after a fall hearing a pop. Comparison Study: Chest, dated June 06, 2016. Findings: In the interim, the patient has developed an obliquely-oriented displaced fracture through the proximal humeral diaphysis. The underlying bone is pathologic, with areas of osteoblastic and lyt ic abnormalities. The humeral head remains seated adjacent to the glenoid, although there is a rotati onal component to the proximal humeral fracture. The acromioclavicular joint is anatomically-aligned. Impression: Acute, displaced, pathologic right humeral diaphyseal fracture. Results were discussed with Dr. Curtis at 10:45 a.m. on June 20, 2016.
[2016-06-20 12:30] VITALS: BP 123/74; PULSE 98; TEMP 98.2; O2SAT 94
== END 2016-06-20 12:32 | disposition home or self-care (01) ==
LOC: EDUNIT#
DX: M84.521A Pathological fracture in neoplastic disease, right humerus, initial encounter for fracture (principal); C34.90 Malignant neoplasm of unspecified part of unspecified bronchus or lung; C61 Malignant neoplasm of prostate; C41.2 Malignant neoplasm of vertebral column; Z87.891 Personal history of nicotine dependence

== ENCOUNTER 2016-06-21 04:25 | Inpatient (IN) | payer OTHER ==
[2016-06-21] MEDS ORDERED: NS 1,000 ML IV ONE ×2 (04:31→05:31)
--- NOTE | 2016-06-21 04:31 | EDPHY ---
H & P HPI/ROS: HPI CHIEF COMPLAINT: Altered mental status HISTORY OF PRESENT ILLNESS: This patient is a 76-year-old male who is presenting by EMS for altered mental status that supposedly started 45 minutes ago according to staff at his [facility]. According to staff he was yelling out clenching his jaw and grabbing at his face with his left arm. He normally ambulates without any difficulty and talks normally. Per EMS he has not talked to them, he is only moving his left arm. Of note this patient was seen here yesterday for pathological fracture right humerus he is in a arm sling. The history is extremely limited as this patient here is nonverbal he has an acute change in mental status. Stroke alert was called upon arrival or at 426AM. Upon arrival here in the emergency room the patient is nonverbal he is only moving his left arm. Tends to look to the right. I did see him move both of his legs, he has not moved his right upper extremity however he does have a recent fracture. Patient has a MOST form DNR. 0440: I did speak with Dr. Monroe with [facility] we felt this patient is not a tPA candidate due to multiple reasons including recent surgery of his left femur, widely metastatic cancer, DNR. Did recommend a CT scan of his head for altered mental status and to rule out significant bleed. Recommends admission. Past Medical History: Significant past medical history for diffuse widely metastatic adenocarcinoma, prostate cancer, recent left femur fracture and surgery, recent right upper extremity fracture Past Surgical History: Recent left femur surgery Social History: Lives at [facility] Family History: Noncontributory ROS REVIEW OF SYSTEMS: Extremely limited due to the patient's clinical state Exam Constitutional triage nursing summary reviewed, vital signs reviewed, Awake, nonverbal Eyes normal conjunctivae and sclera, tends to look to the right, PERRLA. HENT normal inspection, atraumatic, moist mucus membranes, no epistaxis, neck supple/ no meningismus, no raccoon eyes. Respiratory clear to auscultation bilaterally, normal breath sounds, no respiratory distress, no wheezing. Cardiovascular rate normal, regular rhythm, no murmur, no edema, distal pulses normal. Gastrointestinal soft, non-tender, no rebound, no guarding, normal bowel sounds, no distension, no pulsatile mass. Genitourinary no CVA tenderness. Musculoskeletal no midline vertebral tenderness, full range of motion, no calf swelling, no tenderness of extremities, no meningismus, good pulses, neurovascularly intact. Skin pink, warm, & dry, no rash, skin atraumatic. Neurologic patient only moving his left upper extremity, tends to look to the right, nonverbal, grimaces to pain. Psychiatric normal mood/affect. Heme/Lymph/Immune no lymphadenopathy. Differential Diagnosis: Includes but is not limited to in a particular order, seizure, acute onset of altered mental status, CVA, intracranial bleed, infection, electrolyte abnormality, ACS, cardiac arrhythmia, sepsis, medication adverse reaction Medical Decision Making: This patient had an IV established obtain a CT scan of his head without contrast rule out significant bleed, check blood work, EKG will be placed on full control panel builder. Troponin will be gently hydrated. Evaluation for acute onset of change of mental status. Re-evaluation: CT scan of the Head w/o . The results of the study are Negative for anything acute. . The study was read by Dr. Torres. I viewed the images myself on the PACS system. EKG interpretation by me on record in [employer] system. Impression time of EKG 4:50 a.m., this is sinus tachycardia rate of 112 there is some motion artifact due to the patient moving. I do not appreciate acute ischemic change. 0526: Re-evaluation this time this patient is still nonverbal however with painful stimuli and asking his name he does speak with nonsensical words. ED x-ray chest one view: Left upper lobe mass possible pneumonia possible postobstructive pneumonia 0526: due to this patient's altered mental status, and high white blood cell count, and chest x-ray that may show a postobstructive pneumonia will place the patient on broad-spectrum antibiotics. Blood work has been reviewed shows a leukocytosis of 23,000. Blood cultures have been pulled. Will place Sapp catheter for urinalysis. Unclear what the acute causes of his altered mental status at this time. It could also be delirium given that he has a recent fracture of his humerus was given pain medicine. It is also possibility this patient had an acute seizure and was postictal and confused. However his mentation still stays same he does grimace with pain, he does speak nonsensical words. He does have elevated leukocytosis. Lactic acid is elevated could be possible from seizure versus sepsis. 0536: I spoke with the hospitalist service they agree to admit this patient. Specifically I spoke with Dr. Farr. Due to the elevated lactic acid and white count I have given him broad-spectrum antibiotics including IV vancomycin IV Zosyn. He is receiving a fluid bolus. Will repeat his lactic acid. Blood cultures have been pulled. He has not been hypotensive. 0637: Re-examination at this time is resting comfortably. He is more lucid. CT scan of the chest abdomen pelvis with IV contrast. The results of the study are shows a large left upper lobe mass, and postobstructive pneumonitis. Numerous other incidental findings. Please see full CT report. The study was read by Dr. Torres. I viewed the images myself on the PACS system. Critical Care: Total Critical Care Time Spent Managing this Patient: 60 Minutes. This time was spent Exclusively with this patient. This Care was exclusive of procedures. The Organ System/life at risk was neurological This Patient was in Critical Condition because acute altered mental status, high leukocytosis, elevated lactic acid concerning for seizure for stroke Source: Patient, EMS - Medical/Surgical History Hx Asthma: No Hx Chronic Respiratory Disease: No Hx Diabetes: No Hx Cardiac Disease: No Hx Renal Disease: No Hx Cirrhosis: No Hx Alcoholism: No Hx HIV/AIDS: No Hx Splenectomy or Spleen Trauma: No Other PMH: prosate cancer, Anxiety, GERD, Insomnia, secondary malignant neoplasm of bone - Social History Smoking Status: Former smoker Constitutional: Initial Vital Signs Temperature (C) 35.9 C L 06/21/16 04:25 Heart Rate 124 H 06/21/16 04:25 Respiratory Rate 18 06/21/16 04:25 Blood Pressure 109/73 06/21/16 04:25 O2 Sat (%) 90 L 06/21/16 04:25 O2 Delivery Mode Room Air O2 (L/minute) 2 Allergies/Adverse Reactions: No Known Allergies Allergy (Unverified 11/27/12 11:21) Home Medications: Medication Instructions Recorded Dexamethasone [Decadron 4 MG (*)] 4 mg PO BID 06/06/16 Diclofenac Sodium [Voltaren 75 MG 75 mg PO BID 06/06/16 (*)] Acetaminophen [Tylenol 325mg (*)] 650 mg PO Q4HRS PRN #0 tab 06/17/16 Famotidine [Pepcid 20 MG (*)] 20 mg PO BID #0 tab 06/17/16 Gabapentin [Neurontin 300 MG (*)] 300 mg PO BID #0 cap 06/17/16 oxyCODONE CR [Oxycontin] 10 mg PO BID #0 tab 06/17/16 LORazepam [Ativan (*)] 1 mg PO Q8HRS PRN 06/21/16 Sennosides/Docusate Sodium 1 tab PO BID 06/21/16 [Senokot-S] Zolpidem Tartrate [Ambien 5MG (*)] 5 mg PO HS PRN 06/21/16 oxyCODONE IR [Oxycodone Ir (*)] 5 - 10 mg PO Q3HRS PRN 06/21/16 levETIRAcetam [Keppra 500 mg (*)] 500 mg PO BID #60 tab 06/23/16 Medical Decision Making - Data Points Laboratory Results: Laboratory Results 06/21/16 04:30 06/21/16 04:30 Microbiology Results: MICROBIOLOGY 06/21/16 06:25 Blood Blood Culture - Preliminary Gram Positive Cocci Chains 06/21/16 06:25 Blood Blood Panel (PCR) - Final Streptococcus Medications Given: Discontinued Medications Bisacodyl (Dulcolax Rectal) 10 mg OK DAILY PRN; Protocol PRN Reason: Constipation Stop: 12/19/16 05:39 Last Admin: 06/23/16 06:24 Dose: 10 mg Dexamethasone (Decadron) 4 mg PO EDNOW ONE Stop: 06/21/16 11:01 Last Admin: 06/21/16 11:18 Dose: 4 mg Dexamethasone (Decadron) 4 mg PO BID [facility] Stop: 12/18/16 20:59 Last Admin: 06/23/16 09:41 Dose: 4 mg Diclofenac Sodium (Voltaren) 75 mg PO EDNOW ONE Stop: 06/21/16 11:01 Last Admin: 06/21/16 15:17 Dose: Not Given Diclofenac Sodium (Voltaren) 75 mg PO BID [facility] Stop: 12/18/16 20:59 Last Admin: 06/23/16 09:42 Dose: 75 mg Enoxaparin Sodium (Lovenox) 40 mg SC DAILY [facility] Stop: 12/18/16 08:59 Last Admin: 06/23/16 09:41 Dose: 40 mg Famotidine (Pepcid) 20 mg PO BID [facility] Stop: 12/18/16 20:59 Last Admin: 06/23/16 09:42 Dose: 20 mg Gabapentin (Neurontin) 300 mg PO EDNOW ONE Stop: 06/21/16 10:59 Last Admin: 06/21/16 11:16 Dose: 300 mg Gabapentin (Neurontin) 300 mg PO BID [facility] Stop: 12/18/16 20:59 Last Admin: 06/23/16 09:42 Dose: 300 mg Sodium Chloride (Ns) 1,000 mls @ 500 mls/hr IV EDNOW ONE Stop: 06/21/16 06:30 Last Admin: 06/21/16 05:14 Dose: 1,000 mls Azithromycin 500 mg/ Dextrose 255 mls @ 255 mls/hr IV EDNOW ONE PRN Reason: Protocol Stop: 06/21/16 06:24 Last Admin: 06/21/16 11:49 Dose: Not Given Ceftriaxone Sodium/Dextrose (Rocephin 1 Gm (Premix)) 50 mls @ 100 mls/hr IV EDNOW ONE PRN Reason: Protocol Stop: 06/21/16 05:54 Last Admin: 06/21/16 11:49 Dose: Not Given Vancomycin/Sodium Chloride (Vancomycin 1 Gm (Premix)) 250 mls @ 250 mls/hr IV EDNOW ONE PRN Reason: Protocol Stop: 06/21/16 06:26 Last Admin: 06/21/16 06:30 Dose: 250 mls Piperacillin/Tazobactam/Dextrose (Zosyn (Premix)) 100 mls @ 200 mls/hr IV EDNOW ONE PRN Reason: Protocol Stop: 06/21/16 05:56 Last Admin: 06/21/16 09:03 Dose: 100 mls Sodium Chloride (Ns) 1,000 mls @ 0 mls/hr IV ONCE ONE PRN Reason: Wide Open Stop: 06/21/16 05:32 Last Admin: 06/21/16 05:30 Dose: 1,000 mls Levetiracetam 500 mg/ Sodium (Chloride) 105 mls @ 420 mls/hr IV BID [facility] Stop: 12/18/16 08:59 Last Admin: 06/21/16 11:17 Dose: Not Given Vancomycin/Sodium Chloride (Vancomycin 1 Gm (Premix)) 250 mls @ 250 mls/hr IV Q12H [facility] Stop: 07/22/16 01:29 Last Admin: 06/23/16 14:09 Dose: Not Given Levetiracetam (Keppra) 500 mg PO BID [facility] Stop: 12/18/16 20:59 Last Admin: 06/23/16 09:42 Dose: 500 mg Magnesium Hydroxide (Milk Of Magnesia) 30 ml PO DAILY PRN; Protocol PRN Reason: Constipation Stop: 12/19/16 05:39 Last Admin: 06/22/16 15:05 Dose: 30 ml Oxycodone HCl (Oxycodone Ir) 10 mg PO EDNOW ONE Stop: 06/21/16 08:41 Last Admin: 06/21/16 08:57 Dose: 10 mg Oxycodone HCl (Oxycontin) 10 mg PO BID [facility] Stop: 07/01/16 20:59 Last Admin: 06/23/16 09:42 Dose: 10 mg Oxycodone HCl (Oxycodone Ir) 10 mg PO Q3HRS PRN PRN Reason: Pain, Severe Stop: 07/01/16 15:56 Last Admin: 06/23/16 15:02 Dose: 10 mg Senna/Docusate Sodium (Senokot-S) 1 tab PO BID [facility] Stop: 12/18/16 20:59 Last Admin: 06/21/16 20:48 Dose: 1 tab Senna/Docusate Sodium (Senokot-S) 1 - 2 tab PO BID [facility] PRN Reason: Protocol Stop: 12/19/16 08:59 Last Admin: 06/23/16 09:42 Dose: Not Given Departure - Departure Disposition: [facility] Clinical Impression: Altered mental status Qualifiers: Altered mental status type: unspecified Qualifier Code: (R41.82) Altered mental status, unspecified Pneumonia Qualifiers: Pneumonia type: due to unspecified organism Laterality: left Lung location: upper lobe of lung Qualifier Code: (J18.1) Lobar pneumonia, unspecified organism Condition: Fair
[2016-06-21 04:50] LABS: ADD DIFF? YES; ADD MORPH? NO; ADD SCAN? NO; ATYPICAL LYMPHOCYTE FLAG 0 (0-99); FRAGMENT RBC FLAG 0 (0-99); HEMATOCRIT 46.1 % (40.0-51.0); HEMOGLOBIN 15.4 g/dL (13.7-17.5); LEFT SHIFT FLG 20 (0-99); LIPEMIA HEMOLYSIS FLAG 80 (0-99); MEAN CELL HEMOGLOBIN 30.2 pg (27.9-34.1); MEAN CELL HEMOGLOBIN CONCENTR. 33.4 g/dL (32.4-36.7); MEAN CELL VOLUME 90.4 fL (81.5-99.8); MEAN PLATELET VOLUME 11.1 fL (8.7-11.7); PLATELET CLUMPS FLAG 0 (0-99); PLATELET COUNT 225 10^3/uL (150-400); RED CELL DISTRIBUTION WIDTH 14.7 % (11.5-15.2)
--- NOTE | 2016-06-21 04:54 | CPEKG ---
Heart Rate: 112 RR Interval: 536 P-R Interval: 131 QRSD Interval: 74 QT Interval: 320 QTC Interval: 437 P [place]: 0 QRS [place]: 21 T Wave [place]: 90 EKG Severity - ABNORMAL ECG - EKG Impression: WANDERING PACEMAKER EKG Impression: ABERRANT COMPLEX, POSSIBLY SUPRAVENTRICULAR EKG Impression: ABNORMAL T, CONSIDER ISCHEMIA, LATERAL LEADS Electronically Signed By: Crut Mckinney 21-Jun-2016 07:16:34
[2016-06-21 04:56] LABS: INR 1.18 (0.83-1.16)
[2016-06-21 05:02] LABS: ALANINE AMINOTRANSFERASE 70 IU/L (21-72); ALBUMIN 3.4 g/dL (3.5-5.0); ALKALINE PHOSPHATASE 209 IU/L (38-126); ANION GAP 19 mEq/L (8-16); ASPARTATE AMINOTRANSFERASE 52 IU/L (17-59); BILIRUBIN,TOTAL 1.1 mg/dL (0.1-1.4); BILIRUBIN-CONJUGATED 0.4 mg/dL (0.0-0.5); BILIRUBIN-UNCONJUGATED 0.7 mg/dL (0.0-1.1); CARBON DIOXIDE 20 mEq/l (22-31); CHLORIDE 97 mEq/L (97-110); CREATININE 0.7 mg/dL (0.7-1.3); GLOMERULAR FILTRATION RATE > 60; GLUCOSE 211 mg/dL (70-100); MAGNESIUM 1.8 mg/dL (1.6-2.3); POTASSIUM 4.1 mEq/L (3.5-5.2); SODIUM 136 mEq/L (134-144)
[2016-06-21 05:14] LABS: TROPONIN I 0.138 ng/mL (0-0.034)
[2016-06-21 05:21] LABS: CREATINE KINASE-MB FRACTION 3.57 ng/mL (0-3.19)
[2016-06-21 05:22] LABS: CK-MB INTERPRETATION NEGATIVE (NEGATIVE)
[2016-06-21] MEDS ORDERED: AZITHROMYCIN IV 500 MG in D5W 250 ML IV ONE (05:25)
[2016-06-21] MEDS ORDERED: VANCOMYCIN HCL/NORMAL SALINE 250 ML IV ONE (05:27)
[2016-06-21] MEDS ORDERED: PIPERACILLIN/TAZO 4.5 GM/DEX 100 ML IV ONE (05:27)
[2016-06-21 05:33] LABS: ACANTHOCYTES 1+; ECHINOCYTES 1+; GIANT PLATELETS PRESENT; LARGE PLATELETS PRESENT; PLATELET ESTIMATE ADEQUATE (ADEQ)
[2016-06-21] MEDS ORDERED: IOPAMIDOL (ISOVUE-300) 100 ML BTL IV ONE (05:35)
[2016-06-21 06:14] LABS: COLOR YELLOW; LEUKOCYTE ESTERASE,URINE NEGATIVE (NEGATIVE); NITRITE,URINE NEGATIVE (NEGATIVE)
[2016-06-21 06:20] LABS: MUCUS TRACE /lpf (NONE-1+)
[2016-06-21] MEDS ORDERED: ONDANSETRON 4 MG/2 ML VIAL IVP PRN (06:29)
[2016-06-21] MEDS ORDERED: ONDANSETRON DISINTEGRATING 4 MG TAB PO PRN (06:29)
[2016-06-21] MEDS ORDERED: ACETAMINOPHEN 325 MG TAB PO PRN ×2 (06:29→15:57)
--- NOTE | 2016-06-21 07:30 | PDGENHP ---
History and Physical - Chief Complaint altered mental status - History of Present Illness Patient is a 76 year old male with recently diagnosed widely metastatic adenocarcinoma of the lung, diagnosed about 2 weeks ago after admission to [facility] for pathologic fracture, eventually lung carcinoma was identified. Over the course of that admission, patient apparently was quite adamant about pursuing a comfort-directed care plan, deferred any invasive therapies or procedures. It seems he was started on palliative RT prior to discharge. On 06/20, patient presented to the ED in the AM for acute R arm pain, was found to have a new acute pathologic fracture of his R humerus. He was placed in a splint, given pain control and discharged with outpt ortho f/u. At approximately 4 am on 06/21, patient was found to be altered by SNF staff, reportedly aphasic, with grimacing movements of his face and jerking of his L arm. He was immediately transported back to the ED. On arrival to the ED, patient was afebrile and hemodynamically stable. He was unresponsive, with apparent R gaze preference and L sided paralysis. He was brought in as a stroke alert. CT head was obtained and did not reveal any acute abnormalities or hemorrhage. Labs revealed leukocytosis, elevated lactic acid (5 ), elevated BUN, indeterminant troponin. EKG did not reveal any acute ischemic changes. He was covered broadly with antibiotics. By the time of my evaluation, patient's mental status had begun to improve. He was talkative, although not answering questions appropriately. He was also moving all extremities, and complaining of L hip pain. Any further history was unable to be obtained due to altered mental status. History Information - Allergies/Home Medication List Allergies/Adverse Reactions: No Known Allergies Allergy (Unverified 11/27/12 11:21) Home Medications: Dexamethasone [Decadron 4 MG (*)] 4 mg PO BID 06/06/16 [Last Taken 06/06/16 07: 00] Diclofenac Sodium [Voltaren 75 MG (*)] 75 mg PO BID 06/06/16 [Last Taken Unknown ] LORazepam [Ativan (*)] 1 mg PO Q8HRS PRN 06/21/16 [Last Taken Unknown] Sennosides/Docusate Sodium [Senokot-S] 1 tab PO BID 06/21/16 [Last Taken Unknown ] Zolpidem Tartrate [Ambien 5MG (*)] 5 mg PO HS PRN 06/21/16 [Last Taken Unknown] oxyCODONE IR [Oxycodone Ir (*)] 5 - 10 mg PO Q3HRS PRN 06/21/16 [Last Taken Unknown] I have personally reviewed and updated: family history, medical history, social history, surgical history - Past Medical History Additional medical history: remote history of prostate cancer. widely metastatic poorly differentiated adenocarcinoma of lung. multiple pathologic fractures of skeletal bones - Surgical History Reports: no pertinent surgical hx - Family History Positive for: non-pertinent - Social History Smoking Status: Former smoker Alcohol Use: None Drug Use: None Additional social history: Patient lives in [facility]. Review of Systems ROS: 10pt was reviewed & negative except for what was stated in HPI & below Physical Exam Temp Pulse Resp BP Pulse Ox 36.4 C 78 17 106/72 96 06/21/16 06:00 06/21/16 06:00 06/21/16 06:00 06/21/16 06:00 06/21/16 06:00 Constitutional: appears nourished, not in pain, chronically ill appearing Eyes: PERRL, anicteric sclera, EOMI Ears, Nose, Mouth, Throat: moist mucous membranes, hearing normal, ears appear normal, no oral mucosal ulcers Cardiovascular: regular rate and rhythym, no murmur, rub, or gallop, pulses symmetric bilaterally, No JVD, No edema Peripheral Pulses: 2+: dorsalis-pedis (R), dorsalis-pedis (L) Respiratory: no respiratory distress, no rales or rhonchi, clear to auscultation Gastrointestinal: normoactive bowel sounds, soft, non-tender abdomen, no palpable masses Genitourinary: no bladder fullness, no bladder tenderness Skin: warm, normal color, no rashes or abrasions, other (L hip surgical incisions) Neurologic: other (oriented to person, not able to answer questions or follow commands due to AMS; moving all extremities equally ) Psychiatric: encephalopathic Lab Data & Imaging Review 06/21/16 04:30 06/21/16 04:30 WBC 23.18 10^3/uL (3.80-9.50) H 06/21/16 04:30 RBC 5.10 10^6/uL (4.40-6.38) 06/21/16 04:30 Hgb 15.4 g/dL (13.7-17.5) 06/21/16 04:30 POC Hgb 16.7 gm/dL (14.5-17.3) 06/21/16 04:31 Hct 46.1 % (40.0-51.0) 06/21/16 04:30 POC Hct 49 % (42.8-50.6) 06/21/16 04:31 MCV 90.4 fL (81.5-99.8) 06/21/16 04:30 MCH 30.2 pg (27.9-34.1) 06/21/16 04:30 MCHC 33.4 g/dL (32.4-36.7) 06/21/16 04:30 RDW 14.7 % (11.5-15.2) 06/21/16 04:30 Plt Count 225 10^3/uL (150-400) 06/21/16 04:30 MPV 11.1 fL (8.7-11.7) 06/21/16 04:30 Neut % (Auto) Not Reported 06/21/16 04:30 Lymph % (Auto) Not Reported 06/21/16 04:30 [place] % (Auto) Not Reported 06/21/16 04:30 Eos % (Auto) Not Reported 06/21/16 04:30 Baso % (Auto) Not Reported 06/21/16 04:30 Nucleat RBC Rel Count 0.0 % (0.0-0.2) 06/21/16 04:30 Absolute Neuts (auto) Not Reported 06/21/16 04:30 Absolute Lymphs (auto) Not Reported 06/21/16 04:30 Absolute Monos (auto) Not Reported 06/21/16 04:30 Absolute Eos (auto) Not Reported 06/21/16 04:30 Absolute Basos (auto) Not Reported 06/21/16 04:30 Absolute Nucleated RBC 0.00 10^3/uL (0-0.01) 06/21/16 04:30 Immature Gran % Not Reported 06/21/16 04:30 Seg Neutrophils % 81 % 06/21/16 04:30 Band Neutrophils % 7 % 06/21/16 04:30 Lymphocytes % 7 % 06/21/16 04:30 Monocytes % 5 % 06/21/16 04:30 Immature Gran # Not Reported 06/21/16 04:30 Absolute Seg Neuts 18.78 10^/uL (1.70-6.50) H 06/21/16 04:30 Absolute Band Neuts 1.62 10^3/uL (0.00-0.70) H 06/21/16 04:30 Absolute Lymphocytes 1.62 10^3/uL (1.00-3.00) 06/21/16 04:30 Absolute Monocytes 1.16 10^3/uL (0.30-0.80) H 06/21/16 04:30 Atypical Lymphocytes 3+ H 06/21/16 04:30 Platelet Estimate ADEQUATE (ADEQ) 06/21/16 04:30 Large Platelets PRESENT H 06/21/16 04:30 Giant Platelets PRESENT H 06/21/16 04:30 Echinocytes 1+ H 06/21/16 04:30 Acanthocytes (Spur) 1+ H 06/21/16 04:30 PT 15.0 SEC (12.0-15.0) 06/21/16 04:30 INR 1.18 (0.83-1.16) H 06/21/16 04:30 VBG Lactic Acid 5.3 mmol/L (0.7-2.1) H 06/21/16 05:15 POC Sodium 136 mEq/L (134-144) 06/21/16 04:31 Sodium 136 mEq/L (134-144) 06/21/16 04:30 POC Potassium 4.1 mEq/L (3.3-5.0) 06/21/16 04:31 Potassium 4.1 mEq/L (3.5-5.2) 06/21/16 04:30 POC Chloride 97 mEq/L (96-108) 06/21/16 04:31 Chloride 97 mEq/L (97-110) 06/21/16 04:30 Carbon Dioxide 20 mEq/l (22-31) L 06/21/16 04:30 Anion Gap 19 mEq/L (8-16) H 06/21/16 04:30 POC BUN 27 mg/dL (7-23) H 06/21/16 04:31 BUN 25 mg/dL (7-23) H 06/21/16 04:30 Creatinine 0.7 mg/dL (0.7-1.3) 06/21/16 04:30 POC Creatinine 0.6 mg/dL (0.8-1.5) L 06/21/16 04:31 Estimated GFR > 60 06/21/16 04:30 Glucose 211 mg/dL (70-100) H 06/21/16 04:30 POC Glucose 217 mg/dL (70-100) H 06/21/16 04:31 Calcium 9.0 mg/dL (8.5-10.4) 06/21/16 04:30 Magnesium 1.8 mg/dL (1.6-2.3) 06/21/16 04:30 Total Bilirubin 1.1 mg/dL (0.1-1.4) 06/21/16 04:30 Conjugated Bilirubin 0.4 mg/dL (0.0-0.5) 06/21/16 04:30 Unconjugated Bilirubin 0.7 mg/dL (0.0-1.1) 06/21/16 04:30 AST 52 IU/L (17-59) 06/21/16 04:30 ALT 70 IU/L (21-72) 06/21/16 04:30 Alkaline Phosphatase 209 IU/L (38-126) H 06/21/16 04:30 Creatine Kinase 185 IU/L (0-224) 06/21/16 04:30 CK-MB (CK-2) Fraction 3.57 ng/mL (0-3.19) H 06/21/16 04:30 CK-MB (CK-2) % 1.9 % (0.0-4.0) 06/21/16 04:30 Creatine Kinase Interp NEGATIVE (NEGATIVE) 06/21/16 04:30 Troponin I 0.138 ng/mL (0-0.034) H 06/21/16 04:30 NT-Pro-B Natriuret Pep 695 pg/mL (0-450) H 06/21/16 04:30 Total Protein 6.0 g/dL (6.3-8.2) L 06/21/16 04:30 Albumin 3.4 g/dL (3.5-5.0) L 06/21/16 04:30 Lipase 69.0 IU/L (23-300) 06/21/16 04:30 Urine Color YELLOW 06/21/16 05:45 Urine Appearance CLEAR 06/21/16 05:45 Urine pH 6.0 (5.0-7.5) 06/21/16 05:45 Ur Specific [place] 1.020 (1.002-1.030) 06/21/16 05:45 Urine Protein 1+ (NEGATIVE) H 06/21/16 05:45 Urine Ketones NEGATIVE (NEGATIVE) 06/21/16 05:45 Urine Blood 1+ (NEGATIVE) H 06/21/16 05:45 Urine Nitrate NEGATIVE (NEGATIVE) 06/21/16 05:45 Urine Bilirubin NEGATIVE (NEGATIVE) 06/21/16 05:45 Urine Urobilinogen 4.0 EU (0.2-1.0) H 06/21/16 05:45 Ur Leukocyte Esterase NEGATIVE (NEGATIVE) 06/21/16 05:45 Urine RBC 5-10 /hpf (0-3) H 06/21/16 05:45 Urine WBC 1-3 /hpf (0-3) 06/21/16 05:45 Ur Epithelial Cells TRACE /lpf (NONE-1+) 06/21/16 05:45 Hyaline Casts 1-5 /lpf (0-1) 06/21/16 05:45 Urine Mucus TRACE /lpf (NONE-1+) 06/21/16 05:45 Ur Culture Indicated? NOT INDICATED (NI) 06/21/16 05:45 Urine Glucose NEGATIVE (NEGATIVE) 06/21/16 05:45 Visualized and Interpreted Chest x-ray results: Yes Chest X-Ray results: other (KEO mass, cannot r/o post obstructive infiltrate) Visualized and Interpreted EKG results: Yes EKG Interpretation: Positive for: normal sinsus rhythm (no obvious ischemic changes) Assessment & Plan Assessment: Patient is a 76/M with recently diagnosed metastatic adenocarcinoma of the lung , who has expressed wishes to pursue comfort measures only, now presents ED the ED as a stroke alert due to acute altered mental status. MS has improved with time over ED course, presentation appears consistent with seizure activity. Plan: # acute encephalopathy Etiology unclear at this time, although presentation and ED course appears consistent with a seizure. Elevated wbc, lactic acid and improving MS correlates with this. CT head does not reveal any acute pathology. Differential also includes ischemic cva, especially given recent TTE revealing large intracardiac mass vs polypharmacy. Patient has expressed desire to avoid any invasive treatments or procedures in most recent admission. Will check MRI brain , obtain neurology consult, check EEG. Will also start empiric keppra. # leukocytosis, lactic acid Could be reactive due to an acute seizure vs due to infectious etiology (post- obstructive pna). He was cultured and started on empiric abx in the ED for presumed pneumonia, however, will hold off on continuing abx at this time. CT chest/abd/pelvis reads are pending to further evaluate source of infection. Will repeat CBC and lactic acid. # metastatic adenocarcinoma of lung Respiratory status appears stable, CXR appears unchanged from priors. Will f/u CT chest read for possible post-obstructive pneumonia. Will cont home pain regimen, with IV prn. # dispo: admit to inpt service for > 2 MN stay. # gen: NPO DVT ppx: lovenox DNR/DNI
--- NOTE | 2016-06-21 08:01 | CT ---
CT Brain (Without Contrast) History: Altered mental status in a 76-year-old male with known metastatic disease. Technique: Axial computed tomographic images of the brain are obtained from the base to the vertex w ithout contrast. Images are obtained at 5 mm thickness and reformatted at 1.5 mm. Sagittal and shearer l reformations are performed and the study is reviewed at multiple window/level settings. Dose reduct ion techniques were utilized. Comparison to MRI of the brain performed June 07, 2016. Findings: Ventricles, cisterns, and sulci are widened consistent with atrophy. There is no hydroceph alus, midline shift/herniation, or epidural/subdural hematoma. No intraparenchymal hemorrhage or mass effect is identified. Hypodensities are noted in the periventricular and subcortical white matter bi laterally. The distribution of the white matter changes is similar to that noted on the MRI scan. No acute cortical ischemia is identified. Cerebrovascular atherosclerosis is identified. Bone windows d emonstrate no displaced fractures. Paranasal sinuses and mastoid air cells are clear. Impression: Elderly brain with atrophy and probable white matter small vessel disease. Negative for h emorrhage or mass lesion. The study was performed as an emergency on-call case and discussed by telephone with Dr. Hatfield at 05 00 hours. The final interpretation is concordant with the original communication.
[2016-06-21] MEDS ORDERED: NS 1,000 ML IV SCH (08:15)
[2016-06-21] MEDS ORDERED: oxyCODONE IR 5 MG TAB PO ONE (08:40)
[2016-06-21] MEDS ORDERED: oxyCODONE IR 5 MG TAB ONE (08:41)
--- NOTE | 2016-06-21 08:48 | DX ---
Left Hip Technique: AP pelvis and frog-leg left hip, 4 views. Clinical Indications: Recent left femoral rodding. Possible fall. New pain. Comparison: June 10, 2016 Findings: The left femoral nail is in stable position x2 weeks. There is no change in alignment of th e prior lower intertrochanteric hip fracture. There is no evidence for shortening of the side pins of the femoral bianca. There is no evidence of an acute fracture Radioactive seeds overlie the prostate be d. Impression: Stable x2 weeks.
--- NOTE | 2016-06-21 08:51 | DX ---
Portable Chest, 4:54 a.m. History: Acute neurologic change, history of lung cancer Comparison: June 06, 2016 Findings: There is a new, possibly pathologic, fracture of the proximal right humeral shaft with prox imal and medial displacement of the shaft compared to the femoral humeral neck. A left mediastinal ma ss is not obviously changed. There is no evidence for pneumonia or pleural effusion. Heart size remai ns normal. Impression: 1. New proximal right humeral shaft fracture, possibly pathologic considering the patient's history o f lung cancer. 2. Stable mediastinal mass. Results discussed with Dr. Brady at 849 a.m.
[2016-06-21] MEDS ORDERED: levETIRAcetam 500 MG in NS 100 ML IV SCH (09:00)
[2016-06-21] MEDS ORDERED: GABAPENTIN 300 MG CAP PO ONE (10:58)
[2016-06-21] MEDS ORDERED: DICLOFENAC SODIUM 75 MG TAB PO ONE (11:00)
[2016-06-21] MEDS ORDERED: DEXAMETHASONE 4 MG TAB PO ONE (11:00)
--- NOTE | 2016-06-21 12:01 | CT ---
CT Scan of the Chest (With Contrast) Clinical Indications: Sepsis in a 76-year-old male with history of lung cancer and prostate cancer w ith documented osseous metastatic disease in the thoracic spine. Technique: During machine power injection of 90 mL Isovue-300, intravenously, multidetector helical CT imaging was performed from the superior thoracic inlet to the diaphragm. This contrast dose was em ployed for evaluation of the chest, abdomen and pelvis. Axial images are obtained at 5 mm intervals a nd reformatted at 1.5-mm thickness. The examination is reviewed on the workstation at multiple window /level settings. Sagittal and coronal reformations are performed. Dose reduction techniques were util ized for this examination. Findings: There is a large left upper lobe mass measuring 7 cm cephalocaudal x 4 cm transverse. The m ass extends into the left hilum and results in significant compression of the left upper lobe bronchu s. Alveolar opacities in the left upper lobe are seen peripheral to the mass, probably postobstructiv e pneumonitis. A left pleural effusion is identified. At the cephalad extent of the mass there is ext ension medially with destructive lytic changes involving the T3 vertebral body, which has been previo usly demonstrated and evaluated on thoracic MRI of June 07, 2016. There is a 2.5-cm nodule at the left lung base, probably a diaphragmatic metastatic implant. Also there is a 1.3-cm nodular focus ass ociated with the pericardial surface of the left ventricle also possibly a metastatic implant. A smal l pericardial effusion is seen. A 6-mm noncalcified pulmonary nodule is seen medially in the right up per lobe on image 83 of series 3. A small right pleural effusion is identified. There is possible met astatic involvement of the head of the right clavicle. Other osseous metastatic lesions were better d emonstrated on the recent MRI study. There is a pathologic fracture of the right humerus. Impression: 1. Large left upper lobe mass with probable associated postobstructive pneumonitis associated with co mpression of the right upper lobe bronchus. 2. Osseous metastatic disease. 3. Pathologic fracture right humerus. 4. 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 5. See above report for additional findings. The study was performed as an emergency on-call case and discussed by telephone with Dr. Curt madrid at 0635 hours hours. The final interpretation is concordant with the original communication.
--- NOTE | 2016-06-21 12:57 | CT ---
CT Scan of the Abdomen and Pelvis With Contrast Indication: Sepsis and elevated lactate in a 76-year-old male with documented metastatic disease with a history of both lung cancer and prostate cancer. There is an elevated white blood cell count; eval uate for abscess. Technique: Multidetector CT images of the abdomen and pelvis were obtained following the uneventful i ntravenous administration of 90 mL Isovue-300 contrast. This contrast dose was employed for evaluatio n of the chest, abdomen and pelvis. Axial images are obtained at 5 mm intervals and reformatted at 1. 5 mm thickness. The examination is reviewed on the workstation at multiple window/level settings. Sag ittal and coronal reformations are performed. Dose reduction techniques were utilized for this examin ation. Abdomen: Lung bases: Coronary artery calcifications are noted.. Bilateral pleural effusions, left greater than right. Liver: Normal. Biliary system: Normal gallbladder. No intra or extrahepatic dilatation. Spleen: Normal. Pancreas: Normal. Adrenals: There is a 3.7 x 2.9 cm left adrenal mass, presumably a metastatic lesion.. Kidneys: There is no renal obstruction. There is an area of indeterminate low-attenuation in the post erior mid pole of the right kidney. In the left perinephric fat there is a 7-8mm solid nodule that co uld represent a metastatic deposit. Abdominal Aorta: Dense aortic calcifications are noted without aneurysmal dilatation. There is mild flattening of the inferior vena cava which may reflect dehydration. No pathologically e nlarged lymph nodes are seen.. No bowel obstruction, ascites, or retroperitoneal lymphadenopathy. CT Pelvis Findings: Scattered diverticula are seen throughout the colon without diverticulitis. There is a large amount of rectal air. Seeds are noted in the prostate bed. A Sapp catheter is in positio n and the tip invaginates the wall of the bladder and the tube could be pulled back to position more within the center of the bladder. There is been a total left hip arthroplasty. Degenerative changes a re noted in the lumbar spine with disk space loss and vacuum disk phenomenon noted at multiple levels . There is also hypertrophic facet arthropathy from L2-L3 to the L5-S1 level. There is probable canal stenosis at L4-L5. No destructive osteolytic lesions are noted. Impression: 1. Negative for abscess formation or ischemic bowel. 2. Sapp catheter should be pulled back as do not invaginate the bladder wall. 3. Left adrenal metastatic lesion. 4. Multiple other findings are detailed above. The study was performed as an emergency on-call case and discussed by telephone with Dr. Hatfield at 0 635 hours. The final interpretation is not significantly different from the original communication.
[2016-06-21] MEDS: ENOXAPARIN 40 MG/0.4 ML SYR SC SCH (13:56)
[2016-06-21] MEDS ORDERED: LORazepam 0.5 MG TAB PO PRN (15:57)
[2016-06-21] MEDS ORDERED: ZOLPIDEM TARTRATE 5 MG TAB PO PRN (15:57)
--- NOTE | 2016-06-21 16:00 | PDPCPN ---
Palliative Care Progress Note Assessment/Plan: Referring provider: Reason for consult: Complex medical decision making Symptom control HPI: Lev Murillo is a 76 yo male with recent hospitalization for left hip fracture found at that time to be pathological from metastatic lung cancer. Discharged to [facility] for rehab and palliative radiation to T3 lesion. Also with ED visit yesterday for right humerus fracture admitted to the hospital after being found with alerted mental status at [facility]. There was non verbal and with only moving his left arm. In the ed ct head negative for any acute process. With leukocytosis, elevated lactic acid level started on antibiotics for possible PNA as well as keppra for possible seizures. Confusion has improved since admission with almost completely back to baseline except for some short term memory issues. Logan has been very clear in the past his wish for no life prolonging measures or any "procedures" of any kind. He has a MOST form with comfort measures only. Spoke with MDPOAs who agree with Logan's wishes of not having any further medical testing or procedures or work up for AMS. Discussed having hospice care meet with Logan to go over information as his goals are to focus just on comfort. Assessment: Physical: - Pain: back pain as well as left hip pain - - constipation - at risk with opiate use continue bowel regimen with senna and colace Emotional/psychological: has a lot of support from friends who live in the area Advanced Care Planning: Is patient decisional?: Yes Code Status: DNR/DNI POA: Friend Ha is MDPOA. Plan: Meeting with [facility] hospice tomorrow at 11 Am. Likely back to [facility] with hospice. 06/21/16 16:02 Subjective: I'm ok Objective: Social History: Never . Has close friends very involved in his care. Medication list reviewed ROS: General: fatigue, weakness ENT: negative Resp: negative GI: negative : negative MS: back pain Skin: negative Neuro: negative Psych: confusion Functional assessment: PPS: 60% Functional status: needs assistance with most ADLs. Vital Signs Temp Pulse Resp BP Pulse Ox 36.6 C 85 18 116/67 90 L 06/21/16 12:41 06/21/16 12:41 06/21/16 12:41 06/21/16 12:41 06/21/16 12:41 06/20/16 06/21/16 06/22/16 05:59 05:59 05:59 Intake Total 2000 Output Total 400 Balance -400 2000 PT 15.0 SEC (12.0-15.0) 06/21/16 04:30 INR 1.18 (0.83-1.16) H 06/21/16 04:30 Physical Exam - Physical Exam General Appearance: no apparent distress Respiratory: No respiratory distress, No accessory muscle use Skin: normal color, warm/dry Extremities: No pedal edema Neuro/Psych: alert, disoriented to time, other (some confusion) ICD10 Worksheet Patient Problems: Problems Problem Status Diagnosed Altered mental status Acute 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 Palliative care encounter Acute Pneumonia Acute
--- NOTE | 2016-06-21 16:11 | HOSPPROG ---
Hospitalist Progress Note Assessment/Plan: EVENING ROUNDS: I reviewed with palliative care team. As he described to me 10 days ago, the patient really does not have interest in ongoing Rad Tx or any other treatments for his spine beyond comfort medications. He wishes to engage in hospice care, and a meeting with Van is set up for tomorrow. His pain control is adequate at present, no nausea, sob, or fever sxs Objective: Vital Signs Temp Pulse Resp BP Pulse Ox 36.6 C 85 18 116/67 90 L 06/21/16 12:41 06/21/16 12:41 06/21/16 12:41 06/21/16 12:41 06/21/16 12:41 06/20/16 06/21/16 06/22/16 06:59 06:59 06:59 Intake Total 2000 Output Total 400 Balance -400 2000 PT 15.0 SEC (12.0-15.0) 06/21/16 04:30 INR 1.18 (0.83-1.16) H 06/21/16 04:30 ICD10 Worksheet Patient Problems: Problems Problem Status Diagnosed Altered mental status Acute 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 Palliative care encounter Acute Pneumonia Acute
[2016-06-21] MEDS: FAMOTIDINE 20 MG TAB PO SCH (20:48)
[2016-06-21] MEDS: DEXAMETHASONE 4 MG TAB PO SCH (20:48)
[2016-06-21] MEDS: GABAPENTIN 300 MG CAP PO SCH (20:48)
[2016-06-21] MEDS: levETIRAcetam 500 MG TAB PO SCH (20:49)
[2016-06-21] MEDS ORDERED: SENNOSIDES/DOCUSATE SODIUM TAB PO SCH (21:00)
[2016-06-21] MEDS: DICLOFENAC SODIUM 75 MG TAB PO SCH (21:13)
[2016-06-21] MEDS: oxyCODONE IR 5 MG TAB PO PRN (21:13)
[2016-06-22] MEDS: VANCOMYCIN HCL/NORMAL SALINE 250 ML IV SCH ×3 (02:28→13:29)
[2016-06-22] MEDS ORDERED: POLYETHYLENE GLYCOL 3350 17 GM PKT PO PRN (05:40)
[2016-06-22] MEDS ORDERED: BISACODYL 10 MG SUPP PR PRN (05:40)
[2016-06-22] MEDS ORDERED: MAGNESIUM HYDROXIDE 30 ML UDCUP PO PRN (05:40)
[2016-06-22] MEDS ORDERED: LACTULOSE 20 GM/30 ML UDCUP PO PRN (05:40)
[2016-06-22] MEDS: SENNOSIDES/DOCUSATE SODIUM TAB PO SCH ×2 (09:59→20:47)
[2016-06-22] MEDS: FAMOTIDINE 20 MG TAB PO SCH ×2 (09:59→20:47)
[2016-06-22] MEDS: GABAPENTIN 300 MG CAP PO SCH ×2 (10:00→20:46)
[2016-06-22] MEDS: levETIRAcetam 500 MG TAB PO SCH ×2 (10:00→20:46)
[2016-06-22] MEDS: DEXAMETHASONE 4 MG TAB PO SCH ×2 (10:00→20:47)
[2016-06-22] MEDS: ENOXAPARIN 40 MG/0.4 ML SYR SC SCH (10:00)
[2016-06-22] MEDS: DICLOFENAC SODIUM 75 MG TAB PO SCH ×2 (10:00→20:47)
--- NOTE | 2016-06-22 15:50 | PDPCPN ---
Palliative Care Progress Note Assessment/Plan: HPI: Lev Murillo is a 76 yo male with recent hospitalization for left hip fracture found at that time to be pathological from metastatic lung cancer. Discharged to [facility] for rehab and palliative radiation to T3 lesion. Also with ED visit yesterday for right humerus fracture admitted to the hospital after being found with alerted mental status at [facility]. There was non verbal and with only moving his left arm. In the ed ct head negative for any acute process. With leukocytosis, elevated lactic acid level started on antibiotics for possible PNA as well as keppra for possible seizures. Meeting with hospice this morning. Logan is excited to go back to [facility]. He feels well today with no pain. Called and left message with VALERIE William just to update. Discussed with hospitalist and CM. Assessment: Physical: - Pain: back pain as well as left hip pain -continue oxycontin 10mg BID - on gabapentin scheduled as well as voltaren PO - oxy IR PRN - constipation - at risk with opiate use continue bowel regimen with senna and colace Emotional/psychological: has a lot of support from friends who live in the area Advanced Care Planning: Is patient decisional?: Yes Code Status: DNR/DNI POA: Friend Ha is VALERIE. Plan: Back to [facility] with do not rehospitalize. [facility] is working on LTC placement so he can enroll with hospice Subjective: i'm doing ok today Objective: Vital Signs Temp Pulse Resp BP Pulse Ox 36.6 C 73 15 99/57 L 93 06/22/16 07:43 06/22/16 07:43 06/22/16 07:43 06/22/16 07:43 06/22/16 07:43 06/21/16 06/22/16 06/23/16 05:59 05:59 05:59 Intake Total 2000 Output Total 750 Balance 1250 PT 15.0 SEC (12.0-15.0) 06/21/16 04:30 INR 1.18 (0.83-1.16) H 06/21/16 04:30 Physical Exam - Physical Exam General Appearance: alert, no apparent distress Respiratory: No respiratory distress, No accessory muscle use Skin: normal color, warm/dry Extremities: No pedal edema Neuro/Psych: alert, oriented x 3 ICD10 Worksheet Patient Problems: Problems Problem Status Diagnosed Altered mental status Acute 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 Palliative care encounter Acute Pneumonia Acute
--- NOTE | 2016-06-22 18:05 | HOSPPROG ---
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 Pt does not want any further interventions, procedures or treatments and wishes to go back to [place] care on hospice. Will like dc tomorrow with hospice. Subjective: Pt feels well. Denies fevers or chills. Pain fairly well controlled. Objective: Vital Signs Temp Pulse Resp BP Pulse Ox 36.8 C 64 14 107/67 94 06/22/16 16:25 06/22/16 16:25 06/22/16 16:25 06/22/16 16:25 06/22/16 16:25 06/21/16 06/22/16 06/23/16 05:59 05:59 05:59 Intake Total 2000 Output Total 750 450 Balance 1250 -450 PT 15.0 SEC (12.0-15.0) 06/21/16 04:30 INR 1.18 (0.83-1.16) H 06/21/16 04:30 - Physical Exam Constitutional: no apparent distress Eyes: PERRL Ears, Nose, Mouth, Throat: moist mucous membranes Cardiovascular: regular rate and rhythym Respiratory: no respiratory distress Gastrointestinal: normoactive bowel sounds, soft, non-tender abdomen Skin: warm Neurologic: AAOx3 Psychiatric: interacting appropriately ICD10 Worksheet Patient Problems: Problems Problem Status Diagnosed Altered mental status Acute 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 Palliative care encounter Acute Pneumonia Acute
[2016-06-23] MEDS: VANCOMYCIN HCL/NORMAL SALINE 250 ML IV SCH ×2 (02:45→14:09)
[2016-06-23] MEDS: oxyCODONE IR 5 MG TAB PO PRN ×2 (06:23→15:02)
[2016-06-23 07:51] VITALS: BP 120/68; PULSE 74; RESP 18; TEMP 98; O2SAT 91
[2016-06-23] MEDS: DEXAMETHASONE 4 MG TAB PO SCH (09:41)
[2016-06-23] MEDS: ENOXAPARIN 40 MG/0.4 ML SYR SC SCH (09:41)
[2016-06-23] MEDS: DICLOFENAC SODIUM 75 MG TAB PO SCH (09:42)
[2016-06-23] MEDS: FAMOTIDINE 20 MG TAB PO SCH (09:42)
[2016-06-23] MEDS: levETIRAcetam 500 MG TAB PO SCH (09:42)
[2016-06-23] MEDS: SENNOSIDES/DOCUSATE SODIUM TAB PO SCH (09:42)
[2016-06-23] MEDS: GABAPENTIN 300 MG CAP PO SCH (09:42)
--- NOTE | 2016-06-23 10:49 | PDIAF ---
- Diagnosis Diagnosis: metastatic lung cancer Code Status: Do Not Resuscitate - Medication Management Discharge Medications: Medications to Continue on Transfer Dexamethasone [Decadron 4 MG (*)] 4 mg PO BID 06/06/16 [Last Taken 06/06/16 07: 00] Diclofenac Sodium [Voltaren 75 MG (*)] 75 mg PO BID 06/06/16 [Last Taken Unknown ] Acetaminophen [Tylenol 325mg (*)] 650 mg PO Q4HRS PRN #0 tab 06/17/16 [Last Taken Unknown] Famotidine [Pepcid 20 MG (*)] 20 mg PO BID #0 tab 06/17/16 [Last Taken Unknown] Gabapentin [Neurontin 300 MG (*)] 300 mg PO BID #0 cap 06/17/16 [Last Taken Unknown] oxyCODONE CR [Oxycontin] 10 mg PO BID #0 tab 06/17/16 [Last Taken Unknown] LORazepam [Ativan (*)] 1 mg PO Q8HRS PRN 06/21/16 [Last Taken Unknown] Sennosides/Docusate Sodium [Senokot-S] 1 tab PO BID 06/21/16 [Last Taken Unknown ] Zolpidem Tartrate [Ambien 5MG (*)] 5 mg PO HS PRN 06/21/16 [Last Taken Unknown] oxyCODONE IR [Oxycodone Ir (*)] 5 - 10 mg PO Q3HRS PRN 06/21/16 [Last Taken Unknown] levETIRAcetam [Keppra 500 mg (*)] 500 mg PO BID #60 tab 06/23/16 [Last Taken Unknown] Discharge Medications: Refer to the Discharge Home Medication list for PRN reason. - Orders Services needed: Registered Nurse Diet Recommendation: no restrictions on diet - Follow Up Care Current Providers and Referrals: Mathieu Colorado MD [Primary Care Provider] - As per Instructions
--- NOTE | 2016-06-23 10:52 | PDIAF ---
- Diagnosis Diagnosis: metastatic lung cancer Code Status: Do Not Resuscitate - Medication Management Discharge Medications: Medications to Continue on Transfer Dexamethasone [Decadron 4 MG (*)] 4 mg PO BID 06/06/16 [Last Taken 06/06/16 07: 00] Diclofenac Sodium [Voltaren 75 MG (*)] 75 mg PO BID 06/06/16 [Last Taken Unknown ] Acetaminophen [Tylenol 325mg (*)] 650 mg PO Q4HRS PRN #0 tab 06/17/16 [Last Taken Unknown] Famotidine [Pepcid 20 MG (*)] 20 mg PO BID #0 tab 06/17/16 [Last Taken Unknown] Gabapentin [Neurontin 300 MG (*)] 300 mg PO BID #0 cap 06/17/16 [Last Taken Unknown] oxyCODONE CR [Oxycontin] 10 mg PO BID #0 tab 06/17/16 [Last Taken Unknown] LORazepam [Ativan (*)] 1 mg PO Q8HRS PRN 06/21/16 [Last Taken Unknown] Sennosides/Docusate Sodium [Senokot-S] 1 tab PO BID 06/21/16 [Last Taken Unknown ] Zolpidem Tartrate [Ambien 5MG (*)] 5 mg PO HS PRN 06/21/16 [Last Taken Unknown] oxyCODONE IR [Oxycodone Ir (*)] 5 - 10 mg PO Q3HRS PRN 06/21/16 [Last Taken Unknown] levETIRAcetam [Keppra 500 mg (*)] 500 mg PO BID #60 tab 06/23/16 [Last Taken Unknown] Discharge Medications: Refer to the Discharge Home Medication list for PRN reason. - Orders Services needed: Registered Nurse Diet Recommendation: no restrictions on diet Additional: AWAITING HOSPICE. DO NOT RE-HOSPITALIZE - Follow Up Care Current Providers and Referrals: Mathieu Colorado MD [Primary Care Provider] - As per Instructions
--- NOTE | 2016-06-23 21:02 | GDS ---
[f rep st] DISCHARGE SUMMARY DISCHARGE DIAGNOSES: 1. Metastatic adenocarcinoma of the lung. 2. Pathologic fractures secondary to metastatic adenocarcinoma of the lung. 3. Leukocytosis. 4. Positive blood cultures with Streptococcus in 1 of 2 blood cultures on June 21. HISTORY OF PRESENT ILLNESS: For details please see dictated history and physical dated April 20, by Dr. Lyudmila Farr. In brief, Mr. Murillo is a 76-year-old male who was recently diagnosed with widely metastatic adenocarcinoma of the lung and has since suffered from pathologic fractures of his humerus and femur. Since his diagnosis, the patient has been very firm about wishing to pursue comfort-directed care plan and has firmly declined any invasive therapies or procedures. HOSPITAL COURSE: He returned to the ED from his long term facility on the day of admission wit h altered mental status and decreased level of consciousness. He was brought in as a stroke alert. CT head was negative for acute stroke or hemorrhage. He was started on empiric Keppra, and a brain M RI was ordered. A palliative care consult was also obtained given his clearly stated wishes to be co mfort care only and not have any medical interventions. He had a MOLST form completed, also citing c omfort care measures. On the day I resumed his care, I was notified by the lab that 1 of his 2 blood cultures was positive for Streptococcus species. The final PCR identification is Streptococcus not group A, group B or pneumococcus. Though the patient appeared nontoxic, he did have a leukocytosis, though he remained hemodynamically stable and afebrile. I discussed with him the possibility of this being a contaminant versus true bacteremia. Either way, he would not want to pursue even a PICC line or proceed with antibiotic therapy and again states he wishes to discharge back to SNF on hospice wi th comfort care measures. Case Management was involved and it will take several days for hospice to be arranged due to insurance purposes. Therefore he is discharged home with comfort care measures an d instructions to not rehospitalized per patient's wishes. DISPOSITION: Patient is discharged to SNF in stable condition with plans to initiate hospice as soon as able. DISCHARGE MEDICATIONS: Please see [facility] for complete updated outpatient medication list. /[id number]/MODL
== END 2016-06-23 15:20 | DRG 948 ==
LOC: EDUNIT# → INTOOBSV 05:37 → OBSVTOIN 06:29 → F2N 07:22 → F1N 11:40
PROVIDERS: ADMIT Internal Medicine; ATTEND Internal Medicine
DX: R41.82 Altered mental status, unspecified (principal); C34.90 Malignant neoplasm of unspecified part of unspecified bronchus or lung; C79.51 Secondary malignant neoplasm of bone; A49.1 Streptococcal infection, unspecified site; M84.521D Pathological fracture in neoplastic disease, right humerus, subsequent encounter for fracture with routine healing; G47.00 Insomnia, unspecified; F41.9 Anxiety disorder, unspecified; K21.9 Gastro-esophageal reflux disease without esophagitis; Z51.5 Encounter for palliative care; Z66 Do not resuscitate; Z87.891 Personal history of nicotine dependence; Z85.46 Personal history of malignant neoplasm of prostate; Z85.830 Personal history of malignant neoplasm of bone
CPT/HCPCS: 82947-QW; J0456; J1650; J1953; J2543; J3370; Q9967